=== PATIENT | female | born 1950 | race Caucasian/White ===

== ENCOUNTER → 2020-10-03 09:19 | Outpatient (CLI) | payer OTHER, SELFPAY ==
--- NOTE | ~2020-10-03 | CT_ITS ---
EXAMINATION: CT lung screening EXAM DATE: 10/03/2020 09:53 INDICATION: Z87.891 - Personal history of nicotine dependence TECHNIQUE: Spiral low dose CT of the chest without contrast. Axial, coronal and sagittal images were reviewed. The dose-length product (DLP) for this examination was 93.94 mGy-cm. The exposure was ta ilored according to patient size (auto mA exposure control), and iterative reconstruction (ASIR) was used as additional dose reduction technique. Comparison is made to prior examination from 10/01/2018. FINDINGS: Interval development of a lobular right upper lobe nodule anteriorly measuring 1.3 cm aver age dimension. There is mild emphysema. Tracheobronchial tree is patent. There is no mediastinal, h ilar or axillary lymphadenopathy. There are no pleural or pericardial effusions. There is no pneu mothorax. Heart normal in size. There is moderate coronary arterial calcification, arterial scler osis. Upper abdomen is unremarkable. There is thoracic spondylosis without osteoblastic or osteolyt ic lesions identified. IMPRESSION: Lung-RADS category 4B. Consider PET/CT or CT-guided percutaneous lung biopsy. I left a message for Dr. Aline Villanueva MD on 10/03/2020 10:47 RCIS. I provided my direct number, p rovided call back number to discuss findings in this case. Reviewed, dictated and finalized at location B. IMPRESSION: Lung-RADS category 4B. Consider PET/CT or CT-guided percutaneous aviva ng biopsy. I left a message for Dr. Aline Villanueva MD on 10/03/2020 10:47 RCIS. I provid ed my direct number, provided call back number to discuss findings in this case .
== END ==
PROVIDERS: Visit Provider Internal Medicine Critical Care Medicine
DX: Z12.2 Encounter for screening for malignant neoplasm of respiratory organs (principal); Z87.891 Personal history of nicotine dependence
CPT/HCPCS: G0297

== ENCOUNTER → 2020-10-12 12:30 | Outpatient (CLI) | payer OTHER, SELFPAY ==
--- NOTE | ~2020-10-12 | DEXA_ITS ---
Bone Density Report Name: Safia Hamm Age: 70 Sex: Female Ethnicity: White Date of : 1950 Indication: postmenopausal; screening for osteoporosis; height loss; history of glucocorticoids; asthma or emphysema; hysterectomy; Referring Provider: Abril Llanos Study: Bone densitometry was performed. Exam Date: October 12, 2020 Accession number: [id number] Bone Density: Region BMD T-score Z-score Classification AP Spine (L1-L4) 0.963 -0.8 1.3 Normal Femoral Neck (Left) 0.720 -1.2 0.6 Osteopenia Total Hip (Left) 0.807 -1.1 0.4 Osteopenia Femoral Neck (Right) 0.704 -1.3 0.4 Osteopenia Total Hip (Right) 0.831 -0.9 0.6 Normal Total Hip Mean 0.819 -1.0 0.5 Normal World Health Organization criteria for BMD impression classify patients as: Normal (T-score at or above -1.0), Osteopenia (T-score between -1.0 and -2.5), or Osteoporosis (T-score at or below -2.5). 10-year Fracture Risk(1): Major Osteoporotic Fracture 15% Hip Fracture 2.1% Reported Risk Factors: [place] (), Neck BMD=0.704, BMI=25.9, glucocorticoids (1) FRAX(R) Version 3.08. Fracture probability calculated for an untreated patient. Fracture probability may be lower if the patient has received treatment. Clinical Information Provided by Patient: Has taken Glucocorticoids Has used the following medications: Vitamin D, Calcium, MTV Has the following medical conditions: Asthma or Emphysema, Hysterectomy, lung cancer 5 yrs ago Patient maximum height was 71.75 Menopause Age: 41 Drinks caffeinated beverages Onset of menses at age 16 Number of children 2 Impression: The patient has low bone mass, based on the Right Femoral Neck T-score. The patient has an estimated ten-year risk of hip fracture of 2.1% and an estimated ten-year risk of major fracture of 15%, based on the WHO FRAX algorithm. The patient has risk factors, including: history of glucocorticoid therapy. Discussion: BONE DENSITY IS LOW AT ONE OR MORE SKELETAL SITES. This patient's lowest T-score is low at one or more skeletal sites. It meets the World Health Organization's (WHO) criteria for ?low bone mass? (T-score between -1.0 and -2.5). The patient's 10-year risk of fracture as calculated by FRAX is less than the threshold where pharmacological therapy is recommended by the National Osteoporosis Foundation (NOF). However, all treatment decisions require clinical judgment and consideration of individual patient factors, including patient preferences, comorbidities, previous drug use, risk factors not captured in the FRAX model (e.g., frailty, falls, vitamin D deficiency, increased bone turnover, interval significant decline in bone density) and possible under or overestimation of fracture risk by FRAX. The patient should follow a healthful lifestyle (good nutri
--- NOTE | ~2020-10-12 | MM_ITS ---
EXAMINATION: MM screening [facility] BI w naya HISTORY: Screening mammogram TECHNIQUE: Craniocaudal and mediolateral oblique 3-D tomosynthesis images were obtained and synthetic 2-D images were generated. CAD analysis was submitted and interpreted. COMPARISON: 11/13/2018, 08/18/2017, 10/30/2013 BREAST PARENCHYMAL COMPOSITION: There are scattered areas of fibroglandular density. FINDINGS: There is no evidence of suspicious mass, calcification, or architectural distortion to sugg est malignancy in either breast. There has been no suspicious interval change. IMPRESSION: 1. No mammographic evidence of malignancy. 2. Recommend routine screening mammography in one year. BI-RADS Category 1: Negative Reviewed, dictated and finalized at location A. OTIC TECHNICIAN
== END ==
PROVIDERS: PCP Family Medicine; Visit Provider Physician Assistant
DX: Z12.31 Encounter for screening mammogram for malignant neoplasm of breast (principal); Z78.0 Asymptomatic menopausal state; M85.852 Other specified disorders of bone density and structure, left thigh; M85.851 Other specified disorders of bone density and structure, right thigh
CPT/HCPCS: 77063; 77067; 77080

== ENCOUNTER 2020-10-19 09:14 | Outpatient (CLI) | payer OTHER, SELFPAY ==
--- NOTE | ~2020-10-19 | PE_ITS ---
EXAMINATION: PET skull to mid thigh DATE: 10/19/2020 11:34 INDICATION: Lung nodule. TECHNIQUE: Blood glucose level was 88 mg/dL. 9.233 mCi of 18-fluorodeoxyglucose (18-FDG) was administ ered i.v. Low dose computed tomography (CT) images were acquired from the base of the brain to the pr oximal thighs for attenuation correction and anatomic localization. Automated exposure control was em ployed. Dose-length product (DLP) was 506 mGy-cm. Positron emission tomography (PET) images were acqu ired in the same distribution. COMPARISON: Chest CT 10/03/2020, 10/01/2018 FINDINGS: Head/neck: There is increased activity in the oropharynx and major salivary glands and glottis withou t CT correlate, likely physiologic. There are no pathologically enlarged lymph nodes. Chest: There is mild emphysema. There is a 5 mm nodule in left lower lobe without increased activity, worsened from 10/01/18, probably benign. There is a 1.4 cm nodule in right lung upper lobe with maxim um SUV of 7.6. There is a 1.4 cm part-solid nodule with 4 mm solid component in right upper lobe with maximum SUV of 4.0, worsened from 10/01/18. There is a 1.3 cm part-solid nodule with 4 mm solid compo nent without increased activity in left upper lobe, worsened from 10/01/18. There is a chronic 4 mm no dule in right lower lobe without increased activity. There are changes of partial resection of right upper lobe. No pleural effusion. The heart size is normal. There are coronary artery calcifications. No pericardial effusion. There are calcifications of aortic valve. Abdomen/pelvis/proximal thighs: The liver, gallbladder, spleen, pancreas, adrenal glands, and kidneys are normal. There are no dilated loops of bowel. There are no pathologically enlarged lymph nodes. T here is no free intraperitoneal fluid. There is no osseous metastatic disease. IMPRESSION: 1. 1.4 cm nodule in right lung upper lobe with increased activity with worsening from 10/01/2018, very suspicious for primary malignancy. CT-guided biopsy is recommended. 2. 1.4 cm part-solid nodule with increased activity in right upper lobe, worsened from 10/01/18, very suspicious for primary malignancy. 3. 1.3 cm part-solid nodule without increased activity in left upper lobe, worsened from 10/01/18, carter y suspicious for primary malignancy. Reviewed, dictated and finalized at location A. S OPERATOR MEAT IMPRESSION: 1. 1.4 cm nodule in right lung upper lobe with increased activity with worsenin g from 10/01/2018, very suspicious for primary malignancy. CT-guided biopsy is r ecommended. 2. 1.4 cm part-solid nodule with increased activity in right upper lobe, worsen ed from 10/01/18, very suspicious for primary malignancy. 3. 1.3 cm part-solid nodule without increased activity in left upper lobe, wors ened from 10/01/18, very suspicious for primary malignancy.
[2020-10-19 09:42] LABS: Glucose Point of Care 88 (65-105)
== END 2020-10-19 09:15 | disposition home or self-care (01) ==
PROVIDERS: PCP Family Medicine; Visit Provider Internal Medicine Critical Care Medicine
DX: R91.1 Solitary pulmonary nodule (principal); R91.8 Other nonspecific abnormal finding of lung field
CPT/HCPCS: 78815; A9552

== ENCOUNTER 2020-10-30 08:07 | Outpatient (CLI) | payer OTHER, SELFPAY ==
--- NOTE | 2020-11-09 13:48 | WPDPFTINT ---
PFT Interpretation PFT Interpretation: This PFT met all criteria for ATS standards and reproducibility FEV/FVC post bronchodilator 54% FEV1 68% or 1.80 liters FVC 91% or 3.33 liters TLC 108% RV 133% RV/TLC 49% DLCO 73% when adjusted for alveolar volume but not adjusted for hemoglobin Flow volume loops showed significant expiratory coving. Impression: Moderate airflow obstruction with air trapping and mildly reduced diffusion. This pattern is suggestive of COPD. Clinical correlation is advised.
--- NOTE | 2020-11-09 14:05 | WPDSIXMINUTE ---
Six Minute Walk Six Minute Walk: The patients O2 sats started at 96% and dropped as low as 96% Total walk distance 381 meters conclusion: This patient does qualify for home oxygen therapy
== END 2020-10-30 08:08 | disposition home or self-care (01) ==
PROVIDERS: PCP Family Medicine; Visit Provider Internal Medicine Critical Care Medicine
DX: J44.9 Chronic obstructive pulmonary disease, unspecified (principal)
CPT/HCPCS: 94060; 94618; 94726; 94729

== ENCOUNTER 2021-10-22 14:01 | Emergency (ER) | payer OTHER, SELFPAY ==
--- NOTE | ~2021-10-22 | XR_ITS ---
EXAMINATION: XR hip LT min 2V DATE: 10/22/2021 15:12 INDICATION: Left hip pain post fall TECHNIQUE: Anteroposterior and frog-leg lateral views of the left hip were obtained. COMPARISON: None. FINDINGS: Alignment is normal. No fracture. Mild left hip and bilateral sacroiliac osteoarthritis. Moderate low er lumbar facet osteoarthritis. Multiple small phleboliths in the pelvis. Soft tissues are unremarkab le. IMPRESSION: 1. Mild left hip osteoarthritis. No acute osseous abnormality. Reviewed, dictated and finalized at location A. T DESK TEAM MEMBER
[2021-10-22 14:05] VITALS: BP 133/80; PULSE 100; RESP 16; TEMP 36.4; O2SAT 97
[2021-10-22 15:45] VITALS: BP 130/68; PULSE 99; RESP 18; O2SAT 100
--- NOTE | 2021-10-22 15:53 | ED.LOWEXIN ---
HPI - Extremity Injury (Lower) General Chief Complaint: Fall Stated Complaint: Fall, hip pain. Time Seen by Provider: 10/22/21 15:29 Source: patient Mode of arrival: ambulatory Limitations: no limitations History of Present Illness HPI Narrative: Patient is a 71-year-old female complaining of left hip pain, 8 out of 10, dull, aching, worse with palpation, ambulation movement after she tripped while carrying chairs and landed on her left lower extremity. Patient denies any head, neck, chest, back or any other extremity pain/injury. Patient denies any loss of consciousness. Denies any symptoms prior to the fall. Related Data Home Medications Medication Instructions Recorded Confirmed carvedilol 12.5 mg tablet 12.5 mg PO Q12H 01/10/20 10/22/21 cetirizine 10 mg tablet 10 mg PO .qhs tablet 01/10/21 10/22/21 warfarin 5 mg tablet 5 mg PO QMWF 09/13/21 10/22/21 simvastatin 20 mg tablet 20 mg PO DAILY tablet 10/22/21 10/22/21 Allergies Allergy/AdvReac Type Severity Reaction Status Date / Time levofloxacin Allergy Mild hives Verified 10/22/21 09:46 Review of Systems Review of Systems: All systems reviewed & are unremarkable except as noted in HPI and below Constitutional: Constitutional: Denies body ache(s), Denies chills, Denies excessive sweating, Denies fatigue, Denies fever(s), Denies headache(s), Denies lethargy, Denies malaise, Denies weakness and Denies weight loss Eyes: Eyes: Denies blurry vision, Denies change in vision and Denies loss of vision ENT: Denies dizziness, Denies ear discharge, Denies headache(s), Denies lip swelling, Denies epistaxis, Denies nasal congestion, Denies neck pain, Denies throat swelling and Denies tongue swelling Cardiovascular: Cardiovascular: Denies chest pain, Denies chest pain at rest, Denies chest pain with activity, Denies diaphoresis, Denies rapid heart rate, Denies edema, Denies irregular heart rhythm, Denies lightheadedness, Denies palpitations, Denies dyspnea and Denies dyspnea on exertion Respiratory: Respiratory: Denies chest congestion, Denies cough, Denies hemoptysis, Denies dyspnea and Denies dyspnea on exertion Gastrointestinal: Gastrointestinal: Denies abdominal pain, Denies melena, Denies hematochezia, Denies diarrhea, Denies nausea, Denies vomiting and Denies hematemesis Musculoskeletal: Musculoskeletal: Denies deformity, Denies joint swelling, Denies neck pain and Denies numbness Neurologic: Denies Abnormal speech present, Denies abnormal gait, Denies confusion, Denies dizziness, Denies headache(s), Denies focal weakness, Denies loss of vision, Denies numbness, Denies Other visual disturbances, Denies Sensory deficit (Neuro) and Denies weakness Psychiatric: Psychiatric: Denies confusion, Denies depression, Denies auditory hallucinations, Denies homicidal ideation and Denies suicidal ideation Endocrine: Endocrine: Denies cold intolerance, Denies excessive sweating, Denies fatigue, Denies heat intolerance and Denies palpitations Hematologic/Lymphatic: Hematologic/Lymphatic: Denies easy bleeding and Denies easy bruising Allergic/Immunologic: Allergic/Immunologic: Denies lip swelling, Denies throat swelling and Denies tongue swelling PMFSH Past Medical History Medical History Anticoagulation adequate Benign essential HTN Carotid arterial disease COPD (chronic obstructive pulmonary disease) History of lung cancer History of tobacco abuse Hyperlipidemia Lung cancer Nonrheumatic aortic (valve) stenosis PAD (peripheral artery disease) PAF (paroxysmal atrial fibrillation) Tobacco abuse, in remission Surgical History Surgical History Status post lung surgery 2015 lung cancer RUL, M [facility]'s Family History Family History Grandparent Hypertension Family history of elevated blood lipids Cerebrova
[2021-10-22] MEDS: diazePAM (*CRX) 5 MG TABLET 2.5 MG PO (16:33)
[2021-10-22] MEDS: HYDROcodone/acetaminophen (*CRX) 5-325 MG TABLET 1 TAB PO (16:33)
== END 2021-10-22 17:26 | disposition home or self-care (01) ==
LOC: ANHED 15:59
PROVIDERS: Emergency Provider Emergency Medicine; PCP Internal Medicine
DX: S70.02XA Contusion of left hip, initial encounter (principal); I10 Essential (primary) hypertension; I25.10 Atherosclerotic heart disease of native coronary artery without angina pectoris; J44.9 Chronic obstructive pulmonary disease, unspecified; E78.5 Hyperlipidemia, unspecified; I73.9 Peripheral vascular disease, unspecified; I48.0 Paroxysmal atrial fibrillation; I35.0 Nonrheumatic aortic (valve) stenosis; Z85.118 Personal history of other malignant neoplasm of bronchus and lung; Z87.891 Personal history of nicotine dependence
CPT/HCPCS: 73502; 99283; A9270

== ENCOUNTER → 2021-12-18 14:05 | Outpatient (CLI) | payer OTHER, SELFPAY ==
--- NOTE | ~2021-12-18 | MM_ITS ---
EXAMINATION: MM screening [facility] [place] BI w naya HISTORY: Screening TECHNIQUE: Craniocaudal and mediolateral oblique 3-D tomosynthesis images were obtained and synthetic 2-D images were generated. CAD analysis was submitted and interpreted. COMPARISON: Comparison to multiple prior studies sequentially, with oldest reviewed study dated 09/01. BREAST PARENCHYMAL COMPOSITION: Breast composed of scattered areas of fibroglandular density. FINDINGS: There is no evidence of suspicious mass, calcification, or architectural distortion to sugg est malignancy in either breast. There has been no suspicious interval change. IMPRESSION: 1. No mammographic evidence of malignancy. 2. Recommend routine screening mammography in one year. BI-RADS Category 1: Negative Reviewed, dictated and finalized at location A. ATHERAPIST
== END ==
PROVIDERS: PCP Internal Medicine; Visit Provider Internal Medicine
DX: Z12.31 Encounter for screening mammogram for malignant neoplasm of breast (principal)
CPT/HCPCS: 77063; 77067

== ENCOUNTER → 2022-01-23 08:14 | Outpatient (CLI) | payer OTHER, SELFPAY ==
[2022-01-23 11:49] LABS: Influenza A QL RT-PCR Negative (Negative); Influenza B QL RT-PCR Negative (Negative); SARS-CoV-2 RNA PCR Negative
== END ==
PROVIDERS: PCP Internal Medicine; Visit Provider Internal Medicine
DX: Z20.822 Contact with and (suspected) exposure to COVID-19 (principal)
CPT/HCPCS: 87502; C9803; U0003; U0005

== ENCOUNTER → 2022-12-18 09:59 | Outpatient (CLI) | payer OTHER, SELFPAY ==
--- NOTE | ~2022-12-18 | XR_ITS ---
Clinical Indication: Pleurodynia PA and lateral views of the chest: Comparison: 12/08/2015 Findings: Biopsy clips or fiducial markers are noted in the bilateral upper lobes. Questionable vague , very subtle densities about the clips. No other pulmonary abnormality seen.. Cardiomediastinal ivette houette is within normal limits. Bones and soft tissues are unremarkable. Impression: Probable biopsy clips or fiducial markers in the bilateral upper lobes. Correlate with prior surgical /clinical history. No other significant findings. Reviewed, dictated and finalized at location . CTOR OF EVENT SALES Impression: Probable biopsy clips or fiducial markers in the bilateral upper lobes. Correla te with prior surgical/clinical history. No other significant findings.
== END ==
PROVIDERS: PCP Physician Assistant; Visit Provider Physician Assistant
DX: R07.81 Pleurodynia (principal)
CPT/HCPCS: 71046

== ENCOUNTER → 2023-01-16 11:37 | Outpatient (CLI) | payer OTHER, SELFPAY ==
--- NOTE | ~2023-01-16 | MM_ITS ---
EXAMINATION: MM screening [facility] BI w naya HISTORY: Screening mammogram TECHNIQUE: Craniocaudal and mediolateral oblique 3-D tomosynthesis images were obtained and synthetic 2-D images were generated. CAD analysis was submitted and interpreted. COMPARISON: 12/18/2021, 10/12/2020, 11/13/2018 bilateral screening mammogram examinations BREAST PARENCHYMAL COMPOSITION: FINDINGS: There is no evidence of suspicious mass, calcification, or architectural distortion to sugg est malignancy in either breast. There has been no suspicious interval change. IMPRESSION: 1. No mammographic evidence of malignancy. 2. Recommend routine screening mammography in one year. BI-RADS Category 1: Negative Reviewed, dictated and finalized at location A. NICAL SUPPORT DIRECTOR
== END ==
PROVIDERS: PCP Physician Assistant; Visit Provider Physician Assistant
DX: Z12.31 Encounter for screening mammogram for malignant neoplasm of breast (principal)
CPT/HCPCS: 77063; 77067

== ENCOUNTER 2024-05-21 08:21 | Outpatient (CLI) | payer OTHER, SELFPAY ==
--- NOTE | ~2024-05-21 | US_ITS ---
EXAMINATION: US carotid duplex BI DATE: 05/21/2024 09:25 INDICATION: Carotid bruit. Dizziness. TECHNIQUE: Grayscale, color Doppler, and pulsed Doppler images of the cervical carotid arteries were obtained. The degree of vessel stenosis is placed in one of the following categories: normal, <50%, 5 0-69%, >=70% but less than near-occlusion, near-occlusion, or total occlusion. Note that percent sten osis relative to normal distal artery lumen diameter is indirectly measured from velocity measurement s as described by Unruly, et al. Radiology 2003; 229:340-346. COMPARISON: None. FINDINGS: RIGHT: The right common carotid artery (CCA) peak systolic velocity (PSV) is 61 cm/s. The right internal car otid artery (ICA) PSV is 169 cm/s. The right ICA end-diastolic velocity (EDV) is 49 cm/s. The right I CA/CCA PSV ratio is 2.8. Grayscale and color Doppler images yield an estimate of 50-69% diameter redu ction from plaque in the ICA. The external carotid artery (ECA) PSV is 112 cm/s. There is antegrade f low in the right vertebral artery. LEFT: The left CCA PSV is 38 cm/s. The left ICA PSV is 237 cm/s. The left ICA EDV is 64 cm/s. The left ICA/ CCA PSV ratio is 6.2. Grayscale and color Doppler images yield an estimate of >=70% (but less than ne ar occlusion) diameter reduction from plaque in the ICA. The ECA PSV is 115 cm/s. There is antegrade flow in the left vertebral artery. IMPRESSION: 1. 50-69% stenosis in the right internal carotid artery. 2. >=70% (but less than near occlusion) stenosis in the left internal carotid artery. Reviewed, dictated and finalized at location A. IMPRESSION: 1. 50-69% stenosis in the right internal carotid artery. 2. >=70% (but less than near occlusion) stenosis in the left internal carotid a rtery.
== END 2024-05-21 08:22 | disposition home or self-care (01) ==
PROVIDERS: PCP Physician Assistant; Visit Provider Internal Medicine Cardiovascular Disease
DX: R09.89 Other specified symptoms and signs involving the circulatory and respiratory systems (principal); I65.23 Occlusion and stenosis of bilateral carotid arteries
CPT/HCPCS: 93880

== ENCOUNTER 2024-05-21 08:22 | Outpatient (CLI) | payer OTHER, SELFPAY ==
--- NOTE | 2024-05-21 08:48 | ECHO_ITS ---
Patient Info Name: Safia Hamm Age: 73 years : 1950 Gender: Female Ht: 71 in Wt: 176 lbs BSA: 2.01 m2 HR: 71 bpm BP: 165 / 87 mmHg Technical Quality: Good Exam Date: 05/21/2024 10:31 AM Exam Location: Echo Lab Patient Status: Outpatient Admit Date: 05/21/2024 Staff Ordering Physician: Baljinder Mccord DO Carton Stamper: Freddy Lucio RDCS Attending Provider: Baljinder Mccord DO Referring Physician: Flex MOORE; Exam Type: CA echo doppler color flow Study Info Indications I35.0 - Nonrheumatic aortic (valve) stenosis Complete two-dimensional, color flow and Doppler transthoracic echocardiogram is performed. Summary 1. Complete two-dimensional, color flow and Doppler transthoracic echocardiogram is performed. 2. Left ventricular chamber dimension is normal. 3. Left ventricular systolic function is normal, estimated at 55-60%. 4. The left ventricular diastolic function is grade I diastolic dysfunction. 5. E/e' 14 is mildly elevated. 6. The aortic valve is not well visualized. 7. There is moderate aortic valve sclerosis. 8. There is mild aortic valve regurgitation. 9. There is moderate to severe aortic valve stenosis based on a peak velocity of 262 cm/s, mean gradient of 14 mmHg, and aortic valve area of 0.9 cm2. 10. The mitral valve has mildly calcified annulus. 11. There is mild to moderate mitral valve regurgitation. 12. There is mild to moderate tricuspid valve regurgitation. 13. No pulmonary hypertension, estimated pulmonary arterial systolic pressure is 31 mmHg. Left Ventricle E/e' 14 is mildly elevated. Left ventricular chamber dimension is normal. Left ventricular systolic function is normal, estimated at 55-60%. The left ventricular diastolic function is grade I diastolic dysfunction. Right Ventricle Right ventricular systolic function is normal and with normal TAPSE 1.9 cm. Right ventricular chamber dimension is normal. Left Atria Left atrial chamber dimension is normal. Right Atria Right atrial chamber dimension is normal. Aortic Valve There is moderate to severe aortic valve stenosis based on a peak velocity of 262 cm/s, mean gradient of 14 mmHg, and aortic valve area of 0.9 cm2. The aortic valve is not well visualized. There is moderate aortic valve sclerosis. There is mild aortic valve regurgitation. Pulmonic Valve There is no pulmonic regurgitation. Mitral Valve The mitral valve has mildly calcified annulus. There is no mitral valve stenosis. There is mild to moderate mitral valve regurgitation. Tricuspid Valve There is mild to moderate tricuspid valve regurgitation. No pulmonary hypertension, estimated pulmonary arterial systolic pressure is 31 mmHg. Pericardium/Pleural There is no pericardial effusion. Inferior Vena Cava Normal inferior vena cava with >50% collapse upon inspiration consistent with normal right atrial pressure, 5 mmHg. Aorta The aortic root size at the sinus of Valsalva is normal. Left Ventricular Outflow Tract Name Value Normal LVOT 2D LVOT Diameter 2.0 cm LVOT Doppler LVOT Peak Gradient 2 mmHg LVOT Mean Gradient 1 mmHg LVOT VTI 17 cm LVOT VTI/AV VTI
== END 2024-05-21 08:23 | disposition home or self-care (01) ==
PROVIDERS: PCP Physician Assistant; Visit Provider Internal Medicine Cardiovascular Disease
DX: I35.0 Nonrheumatic aortic (valve) stenosis (principal)
CPT/HCPCS: 93306; 93880

== ENCOUNTER 2025-04-06 11:28 | Outpatient (RCR) | payer OTHER, SELFPAY ==
[2025-01-14 16:32] LABS: Prothrombin Time 23.2 Seconds (11.1-14.7)
[2025-03-14 14:19] LABS: INR 1.7
[2025-04-06 12:17] LABS: INR 2.3; Prothrombin Time 25.6 Seconds (11.1-14.7)
== END 2025-04-14 23:59 | disposition home or self-care (01) ==
LOC: ANHLAB 11:28
PROVIDERS: PCP Physician Assistant; Visit Provider Internal Medicine Cardiovascular Disease
DX: I48.0 Paroxysmal atrial fibrillation (principal)
CPT/HCPCS: 36415; 85610

== ENCOUNTER 2025-05-03 14:48 | Outpatient (CLI) | payer OTHER, SELFPAY ==
--- OUTSIDE RECORDS SUMMARY | 2025-05-03 14:52 | XMS_ITS | Clinical Summary ---
Author Organization [facility] [address] Address [address] [place] [address] Care Team Providers Care Human Resources Clerk Name Role Phone Herve Ramirez MD Unavailable [phone] Honorio Oro MD Unavailable Arden Mariscal MD Primary Care Provider [phone] Allergies Active Allergy Reactions Criticality Noted Date Comments Levofloxacin Anaphylaxis High 08/17/2014 Rosuvastatin Muscle pain Medium 07/06/2018 Medications cetirizine (ZyrTEC) 10 mg tablet take 1 tablet by oral route every day 0 0 7 Active fluticasone propion-salmete roL (ADVAIR DISKUS) 250-50 mcg/dose diskus inhaler 1 Active flecainide (TAMBOCOR) 100 mg tablet Take 1 tablet (100 mg total) by mouth 2 (two) times a day 180 tablet 2 3 Active aspirin (Adult Low Dose Aspirin) 81 mg enteric coated tablet Take 1 tablet (81 mg total) by mouth daily 4 Active simvastatin (ZOCOR) 40 mg tablet Take 1 tablet (40 mg total) by mouth daily 90 tablet 3 4 Active carvediloL (COREG) 12.5 mg tablet Take 1 tablet (12.5 mg total) by mouth 2 (two) times a day with meals 180 tablet 1 4 Active warfarin (COUMADIN) 5 mg tablet TAKE 1 & 1/2 TABLETS BY MOUTH ONCE DAILY ON FRIDAY, FRIDAY AND FRIDAY AND 1 TABLET ALL OTHER DAYS 112 tablet 4 Active Active Problems Problem Noted Date Diagnosed Date Coronary artery calcification seen on CT scan Mixed hyperlipidemia 04/25/2022 Medication side effects 08/15/2021 Palpitations 07/31/2020 Statin myopathy 01/24/2020 Stenosis of left carotid artery 07/19/2019 Statin intolerance 07/06/2018 Myalgia 01/19/2018 PAD (peripheral artery disease) ([facility]/HCC) 2016 Chronic anticoagulation 08/12/2017 Paroxysmal atrial flutter 12/19/2016 Overview (03/06/2017): Paroxysmal atrial flutter Chronic obstructive pulmonary disease 12/19/2016 Overview (03/06/2017): Chronic obstructive pulmonary disease, unspecified COPD type Aortic valve stenosis 12/19/2016 Overview (03/07/2017): Aortic stenosis, mild Cancer of lung 12/19/2016 Overview (03/07/2017): Malignant neoplasm of lung, unspecified laterality, unspecified part of lung Benign hypertension 12/19/2016 Overview (03/07/2017): HTN (hypertension), benign Resolved Problems Problem Noted Date Diagnosed Date Resolved Date Dyslipidemia 12/19/2016 10/28/2022 Overview (03/07/2017): Dyslipidemia Surgical History Surgery Date Site/Laterality Comments OTHER SURGICAL HISTORY Paroxysmal Atrial FLutter: Medical History Medical History Date Comments Hx Other Medical Paroxysmal Atri al FLutter Chronic obstructive pulmonary disease (HCC) COPD Hypertension Hypertension Hx Other Medical hx of tobacco u se Family History Medical History Relation Name Comments Other Brother 2 Alive and well; Lung cancer Father Cancer, lung; C ause of : Cancer, lung Heart attack Maternal Grandfather Myocard ial Infarction; Cause of : Myocardial Infarction Colon cancer Mother Cancer, colon; Cause of : Cancer, colon Other Other 1 Family history of family hx stroke; Other Other 2 Family history of family hx cancer; Other Other 3 Family history of family hx heart disease; Other Other 4 Family history of family hx hyperlipidema; Other Other 5 Family history of family hx hypertension; Relation Name Status Comments Brother 1 Alive Brother 2 Father (Age 68) Maternal Grandfather Mother (Age 72) Other 1 Other 2 Other 3 Other 4 Other 5 Social History Tobacco Use Types Packs/Day Years Used Date Smoking Tobacco: Former Cigarettes Q uit: 08/12/2009 Smokeless Tobacco: Never Tobacco Cessation:Counseling Given: Not Answered Alcohol Use Standard Drinks/Week Comments Yes 3 (1 standard drink = 0.6 oz pur e alcohol) Comments Unknown Sex and Gender Information Value Date Recorded Sex Assigned at Not on file Legal Sex Female 6:04 AM OVER SHORT AND DAMAGE CLERK Gender Identity Not on file Sexual Orientation Not on file Obstetrics History Last Filed Vital Signs Vital Sign Reading Time Taken Comments Blood Pressure 116/72 12/05/2023 10:45 AM OVER SHORT AND DAMAGE CLERK Pulse 75 12/05/2023 10:45 AM OVER SHORT AND DAMAGE CLERK Temperature - - Respiratory Rate - - Oxygen Saturation 96% 12/05/2023 10:45 AM OVER SHORT AND DAMAGE CLERK Inhaled Oxygen Concentration - - Weight 82.1 kg (181 lb 1.6 oz) 12/05/2023 10:45 AM OVER SHORT AND DAMAGE CLERK Height 180.3 cm (5' 11) 12/05/2023 10:45 AM OVER SHORT AND DAMAGE CLERK Body Mass Index 25.26 12/05/2023 10:45 AM OVER SHORT AND DAMAGE CLERK Plan of Treatment Health Maintenance Due Date Last Done Comments Breast Cancer Screening-Mammogram 1950 Colon Cancer Screening-Colonoscopy 1950 Depression Screening 1950 Fall Risk Assessment 1950 Hepatitis C Screening 1950 Osteoporosis Screening-Bone Density Scan 1950 DTaP/Tdap/Td Vaccine (1 - Tdap) 1962 Hepatitis B Screening 1969 Well Visit 65+ 2016 Covid-19 Vaccine (2023-2 5 season) 2024 09/11/2021, 01/31/2021, 01/12/2021 Influenza Vaccine (Season Ended) 2025 09/04/2020, 08/21/2019, 08/21/2019, Additional history exists Pneumococcal vaccine 65+ Completed 08/26/2018, 08/03 Zoster Vaccine Completed 06/20/2023, 03/02, 10/22/2015 Insurance [facility] Care Teams Human Resources Clerk Relationship Specialty Start Date End Date Arden Mariscal MD [address] [facility] [address] [facility] [address] [place] [address] PCP - General Internal Medicine 04/25/22 Herve Ramirez MD [address] [facility], [address] [address] Radiation Oncology 08/15/21 Honorio Oro MD [address] [address] Referring Physician Internal Medicine 08/15/21
--- OUTSIDE RECORDS SUMMARY | 2025-05-03 14:52 | XMS_ITS | Encounter Summary ---
Author Organization [facility] Address [address] [place] [address] Care Team Providers Care Loop Cutter Name Role Phone June Khan RN Unavailable [phone] Milad Pena MD Unavailable [phone] Eric Good DIRECTOR OF RESTAURANTS-TOLL LINE MECHANIC Primary Care Provider Encounter Details Date Type Department Care Team (Late st Contact Info) Description 03/29/2025 Results Follow-Up [facility] Cancer Care [address] [facility] [address] [place] [phone] Floridalma Murillo APRN-TOLL LINE MECHANIC [address] [place] [address] Social History Tobacco Use Types Packs/Day Years Used Date Smoking Tobacco: Former Cigarettes 1 30 0 12/01/1977 - 12/01/2007 Smokeless Tobacco: Never Alcohol Use Standard Drinks/Week Comments Yes 3 (1 standard drink = 0.6 oz pur e alcohol) occassional AUDIT-C Answer Date Recorded Q1: How often do you have a drink containing alc ohol? 2-4 times a month 09/13/2024 Q2: How many drinks containi ng alcohol do you have on a typical day when you are drinking? 1 or 2 09/13/2024 Q3: How often do you have si x or more drinks on one occasion? Never 09/13/2024 Overall Financial Resource Strain (CARDIA) Answe r Date Recorded How hard is it for you to pa y for the very basics like food, housing, medical care, and heating? Not hard at all 09/13/2024 PHQ-2 Answer Date Recorded Patient Health Questionnaire-2 Score 0 03/29/2025 [facility] - Occupational Stress Questionnaire Answer Date Recorded Do you feel stress - tense, restless, nervous, or anxious, or unable to sleep at night because your mind is troubled all the time - these days? Not at all 09/13/2024 Hunger Vital Sign Answer Date Recorded Within the past 12 months, y ou worried that your food would run out before you got the money to buy more. Never true 09/13/20 24 Within the past 12 months, t he food you bought just didn't last and you didn't have money to get more. Never true 09/13/2024 PRAPARE - Transportation Answer Date Re corded In the past 12 months, has l ack of transportation kept you from medical appointments or from getting medications? No 08/31 In the past 12 months, has l ack of transportation kept you from meetings, work, or from getting things needed for daily living? No 09/13/2024 Housing Stability Vital Sign Answer Greg e Recorded In the last 12 months, was t here a time when you were not able to pay the mortgage or rent on time? No 09/13/2024 In the past 12 months, how m any times have you moved where you were living? 1 09/13/2024 At any time in the past 12 m [facility], were you homeless or living in a long term (including now)? No 09/13/2024 Comments No Sex and Gender Information Value Date Recorded Sex Assigned at Not on file Legal Sex Female 4:13 PM CDT Gender Identity Female 11/26/2024 8:17 AM TRANSPORTATION MECHANIC Sexual Orientation Not on file documented as of this encounter Functional Status * Is person deaf or have serious hearing difficulty? Answer Date of Assessment Author No 09/13/2024 8:01 PM CDT Lupe Koch, Graduate Nurse * Is person blind or have serious difficulty seeing? Answer Date of Assessment Author No 09/13/2024 8:01 PM CDT Lupe Koch, Graduate Nurse * Does person have serious difficulty walking/climbing stairs? Answer Date of Assessment Author No 09/13/2024 8:01 PM CDT Lupe Koch Graduate Nurse * Does person have difficulty dressing/bathing? Answer Date of Assessment Author No 09/13/2024 8:01 PM CDT Lupe Koch Graduate Nurse * Does person have difficulty doing errands alone? Answer Date of Assessment Author No 09/13/2024 8:01 PM CDT Lupe Koch Graduate Nurse * Over the past 2 weeks, how often have you been bothered by any of the following problems? Question Answer Date of Assessment Author Little interest or pleasure in doing things Not at all 03/29/2025 1:15 PM CDT Ginette Zapata RN Feeling down, depressed, or hopeless Not at all 03/29/2025 1:15 PM CDT Ginette Zapata RN Patient Health Questionnaire -2 Score 0 03/29/2025 1:15 PM CDT Ginette Zapata RN documented as of this encounter Mental Status * Does person have difficulty concentrating/remembering/making decisions? Answer Entry Date Author No 09/13/2024 8:01 PM CDT Lupe Koch Graduate Nurse documented in this encounter Progress Notes * Floridalma Murillo APRN-CNP - 03/29/2025 8:28 PM CDT FYI: Copy of my note I sent to patient via [employer] message: Safia Blackwood, Lab results from recent office visit: Comprehensive Metabolic Panel is clinically stable. LDH level is within normal limits. If you have any questions or concerns please do not hesitate to call the office at [phone]. Have a Great Evening! Thank you, Diana documented in this encounter Plan of Treatment Upcoming Encounters Date Type Department Care Team (Late st Contact Info) Description 06/28/2025 12:40 PM CDT Documentation [address] [address] 06/28/2025 1:00 PM CDT Office Visit [address] [address] Honorio Oro MD [address] [facility] [address] [place] [address] 07/27/2025 11:00 AM CDT Appointment [facility] Imaging Services - CT Scan [address] [facility], [address] [place] [address] 07/28/2025 11:00 AM CDT Office Visit [facility] Health Cancer Care - Radiation Oncology [address] [facility], [address] [place] [address] Rnoald Cruz MD [address] [facility] [address] [place] [address] documented as of this encounter Visit Diagnoses Not on filedocumented in this encounter Care Teams Loop Cutter Relationship Specialty Start Date End Date Eric Good, NADEGE-TOLL LINE MECHANIC [address] [place] [address] PCP - General Nurse Practitioner 06/16/24 June Khan, RN Test Hole Driller 09/28/14 Milad Pena MD [address] [facility] [address] [place] [address] Client Solutions Director Cardiovascular Disease 12/25/22 documented as of this encounter
--- OUTSIDE RECORDS SUMMARY | 2025-05-03 14:52 | XMS_ITS | Encounter Summary ---
Author Organization [facility] Health Address [address] [place] [address] Care Team Providers Care Physical Education Professor Name Role Phone June Khan RN Unavailable [phone] Bentley VillarrealC Primary Care Provide r Milad Pena MD Unavailable [phone] Eric Good APRN-CAR REPOSSESSOR Primary Care Provider Encounter Details Date Type Department Care Team (Late st Contact Info) Description 05/21/2024 [facility] Outpatient Visit [facility] Cancer Care [address] [address] Honorio Oro MD [address] [id number] Social History Tobacco Use Types Packs/Day Years Used Date Smoking Tobacco: Former Cigarettes 1 30 0 12/01/1977 - 12/01/2007 Smokeless Tobacco: Never Alcohol Use Standard Drinks/Week Comments Yes 0 (1 standard drink = 0.6 oz pur e alcohol) occassional PHQ-2 Answer Date Recorded Patient Health Questionnaire-2 Score 0 03/03/2024 Comments No Sex and Gender Information Value Date Recorded Sex Assigned at Not on file Legal Sex Female 4:13 PM CDT Gender Identity Female 11/26/2024 8:17 AM WHOLESALE MANAGER Sexual Orientation Not on file documented as of this encounter Functional Status * Is person deaf or have serious hearing difficulty? Answer Date of Assessment Author No 11/03/2014 7:03 AM Jess Buitrago RN * Is person blind or have serious difficulty seeing? Answer Date of Assessment Author No 11/03/2014 7:03 AM Jess Buitrago RN * Does person have serious difficulty walking/climbing stairs? Answer Date of Assessment Author No 11/03/2014 7:03 AM Jess Buitrago RN * Does person have difficulty dressing/bathing? Answer Date of Assessment Author No 11/03/2014 7:03 AM Jess Buitrago RN * Does person have difficulty doing errands alone? Answer Date of Assessment Author No 11/03/2014 7:03 AM Jess Buitrago RN documented as of this encounter Mental Status * Does person have difficulty concentrating/remembering/making decisions? Answer Entry Date Author No 11/03/2014 7:03 AM Jess Buitrago RN documented in this encounter Plan of Treatment Upcoming Encounters Date Type Department Care Team (Late st Contact Info) Description 06/28/2025 12:40 PM CDT Documentation [facility] Cancer [address] [address] 06/28/2025 1:00 PM CDT Office Visit [facility] Cancer [address] [address] Honorio Oro MD [address] [place] [address] 07/27/2025 11:00 AM CDT Appointment [facility] Imaging Services - CT Scan [address] [facility] 150 [place] [address] 07/28/2025 11:00 AM CDT Office Visit [facility] Cancer Care - Radiation Oncology [address] [place] [address] [place] [phone] Ronald Cruz MD [address] [place] [address] documented as of this encounter Visit Diagnoses Not on filedocumented in this encounter Care Teams Physical Education Professor Relationship Specialty Start Date End Date Bentley Villarreal PA-C [address] [facility] [address] [place], [place] [phone] PCP - General Physician Secretary Receptionist 06/19/22 06/15/24 Eric Good APRN-CAR REPOSSESSOR [address] [place], [place] [phone] PCP - General Nurse Practitioner 06/16/24 June Khan, RN Automatic Wheel Line Operator 09/28/14 Milad Pena MD [address] [facility] [address] [place] [address] Birth Certificate Clerk Cardiovascular Disease 12/25/22 documented as of this encounter
--- OUTSIDE RECORDS SUMMARY | 2025-05-03 14:52 | XMS_ITS ---
Author Organization [facility] Address [address] [facility] [place] [address] Care Team Providers Care Director Of Audiology Name Role Phone June Khan RN Unavailable [phone] Milad Pena MD Unavailable [phone] Eric Good WASTE BALER-BROADCASTING EQUIPMENT MECHANIC Primary Care Provider Active Problems Problem Noted Date Diagnosed Date Gastroesophageal reflux disease 03/29/2025 History of radiation therapy 01/26/2025 Overview (01/26/2025): 1. cT1aN0 RUL NSCLC (adenocarcinoma) s/p segmental resection 10/2014 2. Synchronous primary RUL/ANN NSCLC a. cT1aN0 RUL NSCLC (adenocarcinoma) s/p SABR on CyberKnife to 50Gy/5fx completed 01/2021 b. cT1bN0 ANN NSCLC (adenocarcinoma) s/p SABR on CyberKnife to 50Gy/5fx completed 01/2021 3. cT1bN0 LLL NSCLC (adenocarcinoma) s/p SABR on CyberKnife to 45Gy/5fx completed 01/2025 Primary malignant neoplasm of left lower lobe of lung 01/04/2025 Cancer Staging:Clinical stage from 01/04/2025:Stage IA2(cT1b, cN0, cM0) - Signed by Ronald Cruz MD on 01/04/2025 Hospital discharge follow-up 09/23/2024 Bilateral carotid artery stenosis 09/13/2024 Coronary artery calcification seen on CT scan Adenocarcinoma of left upper lobe of lung 2020 Cancer Staging:Clinical stage from 01/09/2021:Stage IA2(cT1b, cN0, cM0) - Signed by Herve Ramirez MD on 01/09/2021 Adenocarcinoma of right upper lobe of lung 12/05 Cancer Staging:Clinical stage from 12/05/2020:Stage IA1(cT1a, cN0, cM0) - Signed by Herve Ramirez MD on 12/05/2020 Stenosis of left carotid artery 07/19/2019 PAD (peripheral artery disease) 10/27/2017 Paroxysmal atrial flutter 12/19/2016 Overview (03/29/2025): Paroxysmal atrial flutter Paroxysmal atrial fibrillation 01/03/2016 PSVT (paroxysmal supraventricular tachycardia) 1 Assessment & Plan (11/05/2014 1:09 AM CORPORATE RISK ANALYST): - Currently NSR - On Coreg COPD (chronic obstructive pulmonary disease) 05/2014 Assessment & Plan (11/05/2014 1:07 AM CORPORATE RISK ANALYST): - On scheduled DuoNebs, O2 by CA Undiagnosed cardiac murmurs 07/31/2014 Mixed hyperlipidemia 07/31/2014 Essential hypertension, benign 07/31/2014 Assessment & Plan (11/05/2014 1:09 AM CORPORATE RISK ANALYST): - BP WNL on Coreg Current Treatment and Therapy Plans No current plan information found. Past Treatment and Therapy Plans No past plan information found. Lifetime Dose Tracking * Chemical Lifetime Dose Automatic Entry Manual Entr y Dose Length Product 8,663.6 mGy-cm 8,663.6 mGy-cm 0 mG y-cm Resolved Problems Problem Noted Date Diagnosed Date Resolved Date Non-small cell carcinoma of lung 09/29/2014 11/06/2014 Assessment & Plan (11/05/2014 1:05 AM CORPORATE RISK ANALYST): - Pt with pulmonary adenocarcinoma R lung s/p VATS with R non-anatomic segmentectomy and thoracic LN dissection - Stable on 2 L NC - Pain control with Dilaudid epidural and ketorolac - Continue pain control - Wean O2 as tolerated Pneumothorax 09/27/2014 03/29/2025 Solitary pulmonary nodule 08/22/2014
--- OUTSIDE RECORDS SUMMARY | 2025-05-03 14:52 | XMS_ITS | Encounter Summary ---
Author Organization [facility] Health Address [address] [place] [address] Care Team Providers Care Risk Management Specialist Name Role Phone June Khan RN Unavailable [phone] Bentley VillarrealC Primary Care Provide r Milad Pena MD Unavailable [phone] Eric Good APRN-SPRAYER INSECTICIDE Primary Care Provider Encounter Details Date Type Department Care Team (Late st Contact Info) Description 05/21/2024 [facility] Outpatient Visit [facility] Cancer Care [address] [address] Honorio Oro MD [address] [id number] Social History Tobacco Use Types Packs/Day Years [...] CDT Gender Identity Female 11/26/2024 8:17 AM INDUCTION FURNACE OPERATOR Sexual Orientation Not on file documented as [...] Info) Description 06/28/2025 12:40 PM CDT Documentation [facility] Cancer [address] [address] 06/28/2025 1:00 PM CDT Office Visit [facility] Cancer [address] [address] Honorio Oro MD [address] [place] [address] 07/27/2025 11:00 AM CDT Appointment [facility] Imaging Services - CT Scan [address] [facility] 150 [place] [address] 07/28/2025 11:00 AM CDT Office Visit [facility] Cancer Care - Radiation Oncology [address] [place] [address] [place] [phone] Ronald Cruz MD [address] [place] [address] documented as of this encounter Visit Diagnoses Not on filedocumented in this encounter Care Teams Risk Management Specialist Relationship Specialty Start Date End Date Bentley Villarreal PA-C [address] [facility] [address] [place], [place] [phone] PCP - General Physician Spray Pilot 06/19/22 06/15/24 Eric Good APRN-SPRAYER INSECTICIDE [address] [place], [place] [phone] PCP - General Nurse Practitioner 06/16/24 June Khan, RN Dental Service Chief 09/28/14 Milad Pena MD [address] [facility] [address] [place] [address] Shanker Out Cardiovascular Disease 12/25/22 documented as of this encounter
--- OUTSIDE RECORDS SUMMARY | 2025-05-03 14:52 | XMS_ITS | Clinical Summary ---
Author Organization [facility] Care Team Providers Care Genetic Counsellor Name Role Phone Unavailable Primary Care Provider Unavailabl e Immunizations Immunization Administration Dates Next Due Covid-19, Mrna, Lnp-s, Pf, 30 Mcg/0.3 Ml Dose (P fizer) 09/11/2021 Social History Tobacco Use Types Packs/Day Years Used Date Smoking Tobacco: Never Assessed Comments Unknown Sex and Gender Information Value Date Recorded Sex Assigned at Not on file Legal Sex Female 9:04 PM CDT Gender Identity Not on file Sexual Orientation Not on file Plan of Treatment Health Maintenance Due Date Last Done Comments Hepatitis C Virus (HCV) Screening 1950 TdaP Immunization 1950 Colonoscopy 1996 Colorectal Cancer Screening 1996 Cologuard 2001 Immunochemical Fecal Occult Blood 2001 Zoster Immunization (2 of 3) 12/17/2015 10/22/2015 SARS-COV-2 Immunization ( season) 2024 09/11/2021, 01/31/2021, 01/12/2021 Influenza Immunization (Season Ended) 2025 09/04/2020, 08/21/2019, 08/26/2018, Additional history exists Respiratory Syncytial Virus (RSV) Immunization (Adult) (1 - 1-dose 75+ series) 2026 Pneumococcal Immunization (50+ years) Completed 08/26/2018, 08/30/2017 Hepatitis B Immunization Aged Out No longer eligible based on patient's age to complete this topic Human Papillomavirus (HPV) Immunization Aged Out No longer eligible based on patient's age to complete this topic Meningococcal Immunization (ACWY) Aged Out No longer eligible based on patient's age to complete this topic Rotavirus Immunization Aged Out No lo nger eligible based on patient's age to complete this topic
--- OUTSIDE RECORDS SUMMARY | 2025-05-03 14:52 | XMS_ITS | Clinical Summary ---
Author Organization [facility] Address [address] [place] [address] Care Team Providers Care Capper Machine Operator Name Role Phone June Khan RN Unavailable [phone] Milad Pena MD Unavailable [phone] Eric Good ELECTROMECHANICAL EQUIPMENT TESTER-ALTERATION HAND Primary Care Provider Source Comments [facility],non-owned Affiliates and Associated Physician Practices is amultiple site organization consisting of ambulatory clinics and hospital sitesin [place], [place], [place] and [place]. This disclosure is being madepursuant to the Care Everywhere program and may not contain all informatio navailable regarding this patient. Last updated 18.[facility] Allergies Active Allergy Reactions Criticality Noted Date Comments Hydromorphone Nausea and/or Vomiting,Headache Low 09/23/2024 Fentanyl Nausea and/or Vomiting,Headache Low 09/23/2024 Levofloxacin Anaphylaxis High 08/17/2014 Penicillins Urticaria High 03/29/2025 Product containing penicillin (product) Rosuvastatin Unknown Medium 07/06/2018 Leg pain Tramadol Nausea and/or Vomiting,Headache Low 09/23/2024 Medications * Be aware that medications may not be up to date on this document. Alwaysverify current medications with the patient. carvedilol (COREG) 12.5 MG tablet Take 1 Tab by mouth 2 times daily with morning and evening meal 180 Tab 4 5 Active cetirizine (ZYRTEC) 10 MG tabletIndicatio ns:vertigo Take 1 (one) tablet by mouth at bedtime Reasons: vertigo Active albuterol HFA (PROVENTIL;VENT TIANNA;PROAIR) 108 (90 Base) MCG/ACT inhaler Inhale 1 (one) puff to 2 (two) puffs by mouth every 4 hours as needed 1 Active WIXELA INHUB 250-50 MCG/DOSE inhaler Inhale 1 (one) puff by mouth 2 times daily 1 Active acetaminophen CR (TYLENOL ARTHRITIS PAIN) 650 MG tabletIndicatio ns:Pain Take 1 (one) tablet by mouth every 8 hours as needed for Pain Pt takes 2 tab as needed prn Reasons: Pain Active Valerian Root 100 MG Take by mouth nightly as needed Active warfarin (COUMADIN) 5 MG tablet Take 1 (one) tablet by mouth once daily Active simvastatin (ZOCOR) 20 MG tablet Take 1 (one) tablet by mouth once daily 2 Active aspirin EC (Ecotrin) 81 MG tablet Take 1 (one) tablet by mouth once daily 4 Active calcium carbonate (Tums) 500 MG chew tablet Take 1 (one) tablet by mouth 2 times daily as needed for Heartburn 4 Active Homeopathic Products (THERAWORX MUSCLE CRAMP ROLL-ON EX) by Apply externally route at bedtime Active senna (Senokot) 8.6 MG tablet Take 1 (one) tablet by mouth once daily Active Active Problems Problem Noted Date Diagnosed [...] 1 Assessment & Plan (11/05/2014 1:09 AM DESIGN ENGINEERING INTERN): - Currently NSR - On Coreg COPD (chronic obstructive pulmonary disease) 05/2014 Assessment & Plan (11/05/2014 1:07 AM DESIGN ENGINEERING INTERN): - On scheduled DuoNebs, O2 by NC Undiagnosed cardiac murmurs 07/31/2014 Mixed hyperlipidemia 07/31/2014 Essential hypertension, benign 07/31/2014 Assessment & Plan (11/05/2014 1:09 AM DESIGN ENGINEERING INTERN): - BP WNL on Coreg Resolved Problems Problem Noted Date Diagnosed Date Resolved Date Non-small cell carcinoma of lung 09/29/2014 11/06/2014 Assessment & Plan (11/05/2014 1:05 AM DESIGN ENGINEERING INTERN): - Pt with pulmonary adenocarcinoma R lung s/p VATS with R non-anatomic segmentectomy and thoracic LN dissection - Stable on 2 L NC - Pain control with Dilaudid epidural and ketorolac - Continue pain control - Wean O2 as tolerated Pneumothorax 09/27/2014 03/29/2025 Solitary pulmonary nodule 08/22/2014 Encounters Date Type Department Care Team Description 03/29/2025 1:00 PM CDT Office Visit [address] [phone] Floridalma Murillo APRN-CARLOS 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 (AF LURIA, FLUZONE TRIVALENT; 6MO+) (IIV3) 10/22/2015 Covid [email or web address] primary monoval ent 12+ yr 0.3mL Purple cap 01/31/2021,01/12/2021 FLU VACCINE QUAD IIV4 SPLIT 0.25 ML IM 08/21/2019 INFLUENZA VACCINE 08/22/2023 INFLUENZA VACCINE, HIGH-DOSE , QUADR. (FLUZONE HIGH-DOSE QUADRIVALENT; 65Y+), 0.7 ML (HD-IIV4) 09/04/2020,08/21/2019,08/26/2018,2017,08/30/2017,08/30/2017 PNEUMOCOCCAL PPSV23 08/26/2018 Pneumococcal Pcv13 Conj 08/30/2017 RSV AREXVY 60YR+ 0.5ML 08/22/2023 ZOSTER VACCINE, LIVE 10/22/2015 Zoster Hzv Vacc Recombinant Inj Im 06/20/2023, Family History Medical History Relation Name Comments Asthma Father Cancer Father RI Maternal Grandmother Cancer Mother Depression Mother Arrhythmia Paternal Grandfather Cancer Paternal Grandmother Relation Name Status Comments Father Maternal Grandmother Mother Paternal Grandfather Paternal Grandmother Social History Tobacco Use Types Packs/Day Years Used Date Smoking Tobacco: Former Cigarettes 1 30 0 12/01/1977 - 12/01/2007 Smokeless Tobacco: Never Tobacco Cessation:Counseling Given: Not [...] Recorded Patient Health Questionnaire-2 Score 0 03/29/2025 [facility] - Occupational Stress [...] any time in the past 12 m [facility], were you homeless or living in a custodial (including now)? No 09/13/2024 Comments No Sex and Gender Information Value Date Recorded Sex Assigned at Not on file Legal Sex Female 4:13 PM CDT Gender Identity Female 11/26/2024 8:17 AM DESIGN ENGINEERING INTERN Sexual Orientation Not on file Last Filed Vital Signs Vital Sign Reading Time Taken Comments Blood Pressure 144/73 03/29/2025 1:14 PM CDT Pulse 70 03/29/2025 1:14 PM CDT Temperature 36.4 C (97.5 F) 03/29/2025 1:14 PM CDT Respiratory Rate 9 12/21/2024 2:15 PM DESIGN ENGINEERING INTERN Oxygen Saturation 98% 03/29/2025 1:14 PM CDT Inhaled Oxygen Concentration - - Weight 81.6 kg (180 lb) 03/29/2025 1:14 PM CDT Height 180.3 cm (5' 11) 12/27/2024 11:07 AM DESIGN ENGINEERING INTERN Body Mass Index 25.1 12/27/2024 11:07 AM DESIGN ENGINEERING INTERN Plan of Treatment Upcoming Encounters Date Type Department Care Team (Late st Contact Info) Description 06/28/2025 12:40 PM CDT Documentation [facility] Cancer [address] [address] 06/28/2025 1:00 PM CDT Office Visit [facility] [address] [address] Honorio Oro MD [address] [place] [address] 07/27/2025 11:00 AM CDT Appointment [facility] Health Imaging Services - CT Scan [address] [facility] [address] [place] [address] 07/28/2025 11:00 AM CDT Office Visit [facility] Cancer Care - Radiation Oncology [address] [place], [place] [address] LIZBETH CUMMINGS [phone] Ronald Cruz MD [address] [place] [address] [place] [address] Health Maintenance Due Date Last Done Comments BONE DENSITY TESTING 1950 COLOGUARD (AGES 45-75) - COLON CA SCREENING 1950 COLON MONITORING 1950 COLONOSCOPY - COLON CA SCREENING 1950 CT COLONOGRAPHY - COLON CA SCREENING 1950 Colorectal Cancer Screening 1950 FIT - COLON CA SCREENING 1950 FLEX SIG - COLON CA SCREENING 1950 MAMMOGRAM 1950 MEDICARE AWV 12 MONTHS 1950 HEPATITIS C SCREENING 05/27/1969 DTAP/TDAP/TD VACCINES (1 - Tdap) 1970 COVID-19 VACCINE (2023- season) 2025 08/16/2024, 09/06/2023, 11/01/2022, Additional history exists PNEUMOCOCCAL VACCINE 50+ Completed 08/26/2018, 08/03 ZOSTER VACCINE Completed 06/20/2023, 03/02, 10/22/2015 Respiratory Syncytial Virus (RSV) Vaccine Pt: or over 60 yrs Completed 08/22/2023 INFLUENZA VACCINE Completed 08/16/2024, , 09/16/2022, Additional history exists DEPRESSION SCREENING Completed 12/13/2024, 03/03/2024, 12/25/2022, Additional history exists HEPATITIS B VACCINE Aged Out No longe r eligible based on patient's age to complete this topic HIB VACCINE Aged Out No longer eligi ble based on patient's age to complete this topic HPV VACCINE Aged Out No longer eligi ble based on patient's age to complete this topic MENINGOCOCCAL (Group B) VACCINE SHARED DECISION-MAKING Aged Out No longer eligible based on patient's age to complete this topic MENINGOCOCCAL GROUPS A/C/Y/W VACCINE Aged Out No longer eligible based on patient's age to complete this topic Medical Devices Implanted Type Area Data Center Solutions Architect Device Identifier Shelf Expiration Date Model / Serial / Lot Patch Cv 8x.8cm Photofix Decellularized Implanted:Qty: 1 on 09/13/2024 by Baudilio Beth MD at [facility] Left: Carotid [employer] [id number] 01/24/2026 [id number] / / [id number] Fiducial Markers-12/21/2024 Implanted:Qty: 2 on 12/21/2024 by rEic Castillo MD Left: Lung [employer] [facility] 03/26/2027 [id number] Procedures Procedure Name Priority Date/Time Associated Diagnosis Comments LDH BLOOD Routine 03/29/2025 2:20 PM CDT 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)- disease progression to LLL COMPREHENSIVE METABOLIC PANEL Routine 03/29/2025 2:20 PM CDT 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)- disease progression to LLL CBC W AUTO DIFFERENTIAL (CANCER CARE) Routine 03/29/2025 1:09 PM CDT 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)- disease progression to LLL from Last 3 Months Results * (ABNORMAL) COMPREHENSIVE METABOLIC PANEL (03/29/2025 2:20 PM CDT) Glucose 80 70 - 99 mg/dL [facility] INSURANCE BILL BUN 17 7 - 26 mg/dL [facility] INSURANCE BILL Creatinine 0.90 0.57 - 1.11 mg/dL [facility] INSURANCE BILL eGFR by CKD-EPI 68(L) >=90 mL/min/1.7 3 m2 [facility] INSURANCE BILL Sodium 140 136 - 145 mmol/L [facility] INSURANCE BILL Potassium 4.5 3.5 - 5.1 mmol/L [facility] INSURANCE BILL Chloride 104 98 - 107 mmol/L [facility] INSURANCE BILL CO2 27 22 - 29 mmol/L [facility] INSURANCE BILL Calcium 9.6 8.4 - 10.4 mg/dL [facility] INSURANCE BILL Protein Total 6.8 6.4 - 8.3 gm/dL [facility] INSURANCE BILL Albumin 4.1 3.4 - 5.0 gm/dL [facility] INSURANCE BILL Bilirubin Total 0.3 0.2 - 1.2 mg/dL [facility] INSURANCE BILL Alkaline Phosphatase 56 40 - 150 U/L [facility] INSURANCE BILL AST 22 10 - 48 U/L [facility] INSURANCE BILL ALT 15 6 - 57 U/L [facility] INSURANCE BILL Blood BLOOD SPECIMEN / Unknown 03/29/2025 2:20 PM CDT 03/29/2025 Comment:Blood Release to [facility] Narrative [facility] INSURANCE BILL - 03/29/2025 9:08 PM CDT Performed at: [address] [place] [id number] Osd Clerk: Dc Castaneda Dr, Phone: [phone] Floridalma Murillo ELECTROMECHANICAL EQUIPMENT TESTER-ALTERATION HAND LAB - CHEMISTRY OR DERABLES Final Result Performing Organization Address City/Va Hospital/ZIP Co de Phone Number [facility] INSURANCE BILL [address] [place] [address] * LDH BLOOD (03/29/2025 2:20 PM CDT) [facility] LDH 182 125 - 220 U/L [facility] INSURANCE BILL Blood BLOOD SPECIMEN / Unknown 03/29/2025 2:20 PM CDT 03/29/2025 Comment:Blood Release to [facility] INSURANCE BILL - 03/29/2025 9:08 PM CDT Performed at: [address] [place] [id number] Osd Clerk: Dc Castaneda Dr, Phone: [phone] Floridalma Murillo ELECTROMECHANICAL EQUIPMENT TESTER-ALTERATION HAND LAB - CHEMISTRY OR DERABLES Final Result Performing Organization Address City/[facility] Hospital/ZIP Co de Phone Number [facility] INSURANCE BILL [address] [place] [address] * (ABNORMAL) CBC W AUTO DIFFERENTIAL (CANCER CARE) (03/29/2025 1:09 PM CDT) Pathologist [facility] WBC 4.6 4.4 - 10.7 x10E9/L 03/29/2025 1:15 PM CDT [facility] Neutrophils % 65.2 44.0 - 73.0 % 03/29/2025 1:15 PM CDT [facility] Lymphocytes % 16.2(L) 20.0 - 43.0 % 03/29/2025 1:15 PM CDT [facility] Monocytes % 12.9 5.0 - 13.0 % 03/29/2025 1:15 PM CDT [facility] Eosinophils % 4.4 0.0 - 6.0 % 03/29/2025 1:15 PM CDT [facility] Basophils % 1.3 0.0 - 2.0 % 03/29/2025 1:15 PM CDT [facility] Neutrophil Absolute 2.99 2.01 - 7.14 x10E9/L 03/29/2025 1:15 PM CDT [facility] Lymphocytes Absolute 0.74(L) 1.07 - 3.94 x10E9/L 03/29/2025 1:15 PM CDT [facility] Monocytes Absolute 0.59 0.26 - 1.07 x10E9/L 03/29/2025 1:15 PM CDT [facility] Eosinophils Absolute 0.20 0 - 0.47 x10E9/L 03/29/2025 1:15 PM CDT [facility] Basophils Absolute 0.06 0 - 0.08 x10E9/L 03/29/2025 1:15 PM CDT [facility] RBC 4.31 3.80 - 5.20 x10E12/L 03/29/2025 1:15 PM CDT [facility] Hemoglobin 13.5 12.0 - 15.6 gm/dL 03/29/2025 1:15 PM CDT [facility] Hematocrit 42.0 35.9 - 45.5 % 03/29/2025 1:15 PM CDT [facility] MCV 97.4 80.7 - 98.3 fl 03/29/2025 1:15 PM CDT [facility] MCH 31.3 26.7 - 34.0 pg 03/29/2025 1:15 PM CDT [facility] MCHC 32.1 30.8 - 35.9 gm/dL 03/29/2025 1:15 PM CDT [facility] RDW-CV 13.1 12.1 - 14.9 % 03/29/2025 1:15 PM CDT [facility] Platelet Count 203 153 - 416 x10E9/L 03/29/2025 1:15 PM CDT [facility] MPV 10.2 9.4 - 12.9 fl 03/29/2025 1:15 PM CDT [facility] Blood BLOOD SPECIMEN / Unknown 03/29/2025 1:09 PM CDT 03/29/2025 1:09 PM CDT Floridalma Murillo APRN-ALTERATION HAND LAB - HEMATOLOGY O RDERABLES Final Result [facility] [address] [facility],[address] [address] from Last 3 Months Insurance [facility] MEDICARE Advance Directives * Full Code (Latest Code Status on File) Date Activated Date Inactivated Comments 09/16/2024 2:31 PM 09/17/2024 3:59 PM * Full Code Date Activated Date Inactivated Comments 11/03/2014 12:16 PM 11/06/2014 1:44 PM * Full Code Date Activated Date Inactivated Comments 09/27/2014 6:11 PM 10/03/2014 3:32 PM Care Teams Capper Machine Operator Relationship Specialty Start Date End Date Eric Good, NADEGE-ALTERATION HAND [address] [place] [address] PCP - General Nurse Practitioner 06/16/24 June Khan, RN Quality Control Chemist 09/28/14 Milad Pena MD [address] [place] [address] Block Hacker Cardiovascular Disease 12/25/22
--- OUTSIDE RECORDS SUMMARY | 2025-05-03 14:52 | XMS_ITS | Referral Summary ---
Author Organization [facility] [address] Address [address] [place] [address] Care Team Providers Care Design Verification Engineer Name Role Phone Herve Ramirez MD Unavailable [phone] Honorio Oro MD Unavailable Arden Mariscal MD Primary Care Provider [phone] Allergies Active Allergy Reactions Criticality Noted Date [...] 07/06/2018 Myalgia 01/19/2018 PAD (peripheral artery disease) ([facility]) 2016 Chronic anticoagulation 08/12/2017 Paroxysmal atrial flutter [...] Date Dyslipidemia 12/19/2016 10/28/2022 Overview (03/07/2017): Dyslipidemia Social History Tobacco Use Types Packs/Day Years Used Date Smoking Tobacco: Former Cigarettes Q uit: 08/12/2009 Smokeless Tobacco: Never Tobacco Cessation:Counseling Given: Not Answered Alcohol Use Standard Drinks/Week Comments Yes 3 (1 standard drink = 0.6 oz pur e alcohol) Comments Unknown Sex and Gender Information Value Date Recorded Sex Assigned at Not on file Legal Sex Female 6:04 AM MANAGER LOGISTIC Gender Identity Not on file Sexual Orientation Not on file Last Filed Vital Signs Vital Sign Reading Time Taken Comments Blood Pressure 116/72 12/05/2023 10:45 AM MANAGER LOGISTIC Pulse 75 12/05/2023 10:45 AM MANAGER LOGISTIC Temperature - - Respiratory Rate - - Oxygen Saturation 96% 12/05/2023 10:45 AM MANAGER LOGISTIC Inhaled Oxygen Concentration - - Weight 82.1 kg (181 lb 1.6 oz) 12/05/2023 10:45 AM MANAGER LOGISTIC Height 180.3 cm (5' 11) 12/05/2023 10:45 AM MANAGER LOGISTIC Body Mass Index 25.26 12/05/2023 10:45 AM MANAGER LOGISTIC Plan of Treatment Not on file Insurance [facility] Care Teams Design Verification Engineer Relationship Specialty Start Date End Date Arden Mariscal MD [address] [address] PCP - General Internal Medicine 04/25/22 Herve Ramirez MD [address] DEPT RADIATION ONCOLOGY, [address] [address] Radiation Oncology 08/15/21 Honorio Oro MD [address] [address] Referring Physician Internal Medicine 08/15/21
--- OUTSIDE RECORDS SUMMARY | 2025-05-03 14:52 | XMS_ITS | Encounter Summary ---
Author Organization [facility] Address [address] [facility] [address] [place] [address] Care Team Providers Care Senior Supplier Quality Engineer Name Role Phone Tricia Edward MD Primary Care Provider Tricia Edward MD Primary Care Provider Jeremy Mar MD Primary Care Provider [phone] Herve Ramirez MD Unavailable [phone] Honorio Oro MD Unavailable Arden Mariscal MD Primary Care Provider [phone] Encounter Details Date Type Department Care Team (Late st Contact Info) Description 12/19/2016 Orders Only [facility] Provider, MD Ana [address] [place] [address] Social History Tobacco Use Types Packs/Day Years Used Date Smoking Tobacco: Former Cigarettes Q uit: 12/01/2006 Alcohol Use Standard Drinks/Week Comments Yes 0 (1 standard drink = 0.6 oz pur e alcohol) Comments Unknown Sex and Gender Information Value Date Recorded Sex Assigned at Not on file Legal Sex Female 6:04 AM IMPACT HAMMER OPERATOR Gender Identity Not on file Sexual Orientation Not on file documented as of this encounter Plan of Treatment Not on file documented as of this encounter Procedures Procedure Name Priority Date/Time Associated Diagnosis Comments CARDIOLOGY REPORT 12/19/2016 documented in this encounter Results * CARDIOLOGY REPORT (12/19/2016) Anatomical Region Laterality Modality Other Narrative 12/19/2016 Ordered by an unspecified provider. us Historical Provider [facility] MIGUELITO NATARAJAN Final Result documented in this encounter Visit Diagnoses Not on filedocumented in this encounter Care Teams Senior Supplier Quality Engineer Relationship Specialty Start Date End Date Tricia Edward MD [address] [place] [address] PCP - General 02/28/17 08/14/21 Tricia Edward MD [address] [address] [place] [address] PCP - General 12/04/12 02/27/17 Jeremy Mar MD [address] [facility] [address] [place] [address] PCP - General Internal Medicine 08/15/21 04/24/22 Arden Mariscal MD [address] [address] [facility] [address] [place] [address] PCP - General Internal Medicine 04/25/22 Herve Ramirez MD [address] DEPT RADIATION ONCOLOGY, [address] [address] Radiation Oncology 08/15/21 Honorio Oro MD [address] [address] Referring Physician Internal Medicine 08/15/21 documented as of this encounter
--- NOTE | 2025-05-03 15:07 | ECHO_ITS ---
Patient Info Name: Safia Hamm Age: 74 years : 1950 Gender: Female Ht: 71 in Wt: 171 lbs BSA: 1.97 m2 HR: 87 bpm BP: 151 / 75 mmHg Technical Quality: Good Exam Date: 05/03/2025 3:15 PM Patient Status: O Admit Date: 05/03/2025 Exam Type: CA echo doppler color flow Complete two-dimensional, color flow and Doppler transthoracic echocardiogram is performed. Welding Operator: Kari Starks Attending Provider: Baljinder Mccord DO Summary 1. Complete two-dimensional, color flow and Doppler transthoracic echocardiogram is performed. 2. Left ventricular chamber dimension is normal. 3. Left ventricular systolic function is normal, estimated at 65-70. 4. The left ventricular diastolic function is grade I diastolic dysfunction. 5. E/e' 9 is minimally elevated. 6. There is severe aortic valve sclerosis. 7. There is moderate aortic valve stenosis with a peak velocity of 301 cm/s, mean gradient of 21 mmHg, and aortic valve area of 1.0 cm2. 8. The mitral valve has a mildly calcified annulus. 9. There is mild tricuspid valve regurgitation. 10. No pulmonary hypertension, estimated pulmonary arterial systolic pressure is 27 mmHg. Left Ventricle E/e' 9 is minimally elevated. Left ventricular chamber dimension is normal. Left ventricular systolic function is normal, estimated at 65-70. The left ventricular diastolic function is grade I diastolic dysfunction. Right Ventricle Right ventricular chamber dimension is normal. Right ventricular systolic function is normal and with normal TAPSE 1.9 cm. Left Atria Left atrial chamber dimension is normal. Right Atria Right atrial chamber dimension is normal. Aortic Valve The aortic valve is probable trileaflet. There is severe aortic valve sclerosis. There is moderate aortic valve stenosis with a peak velocity of 301 cm/s, mean gradient of 21 mmHg, and aortic valve area of 1.0 cm2. There is no aortic valve regurgitation. Pulmonic Valve There is no pulmonic regurgitation. Mitral Valve The mitral valve has a mildly calcified annulus. There is no mitral valve stenosis. There is no mitral valve regurgitation. Tricuspid Valve There is mild tricuspid valve regurgitation. No pulmonary hypertension, estimated pulmonary arterial systolic pressure is 27 mmHg. Pericardium/Pleural There is no pericardial effusion. Inferior Vena Cava Normal inferior vena cava with >50% collapse upon inspiration consistent with normal right atrial pressure, 5 mmHg. Aorta The aortic root size at the sinus of Valsalva is normal. Left Ventricular Outflow Tract Name Value Normal LVOT 2D LVOT Diameter 2.1 cm LVOT Doppler LVOT Peak Velocity 87 cm/s LVOT Peak Gradient 3 mmHg LVOT Mean Gradient 2 mmHg LVOT VTI 20 cm LVOT VTI/AV VTI Ratio 0.3 LVOT Stroke Volume 70 ml LVOT CO 12.8 l/min LVOT CI 6.5 l/min/m2 Pulmonic Valve Name Value Normal PV Doppler PV Peak Velocity 93 cm/s PV Peak Gradient 3 mmHg Mitral Valve Name Value Normal MV Diastolic Function MV E Peak Velocity 74 cm/s MV A Peak Velocity 106 cm/s MV E/A 0.7 MV Decel Time (PW) 311 ms MV Annular TDI MV E/e' (Septal) 10.4 MV E/e' (Lateral) 8.5 MV E/e' (Average) 9.4 Tricuspid Valve Name Value Normal TV Regurgitation Doppler TR Peak Velocity 235 cm/s TR Peak Gradient 20 mmHg Estimated PAP/RSVP RA Pressure 5 mmHg <=5 PA Systolic Pressure 27 mmHg <36 RV Systolic Pressure 27 mmHg <36 TV Annular TDI TV Lateral Mariola s' Velocity 14.8 cm/s >=9.5 Aorta Name Value Normal Ascending Aorta Ao Root Diameter (MM) 2.9 cm Ao Root Diam Index (MM) 1.5 cm/m2 Aortic Valve Name Value Normal AV Doppler AV Peak Velocity 301 cm/s AV Peak Gradient 36 mmHg AV Mean Gradient 21 mmHg AV VTI 68 cm AV Area (Cont Eq VTI) 1.0 cm2 >=3.0 AV Area (Cont Eq Calderon) 1.0 cm2 AV DI (Calderon) 0.29 AV Regurgitation 2D LVOT Area 3.5 cm2 Ventricles Name Value Normal LV Dimensions 2D/MM IVS Diastolic Thickness (2D) 0.9 cm 0.6-1.0 LVID Diastole (2D) 4.1 cm 3.8-5.2 LVIW Diastolic Thickness (2D) 1.0 cm 0.6-0.9 LVID Systole (2D) 3.1 cm 2.2-3.5 LVOT Diameter 2.1 cm LV Mass (2D Cubed) 122.01 g 67.00-162.00 LV Mass Index (2D Cubed) 62 g/m2 43-95 Relative Wall Thickness (2D) 0.47 <=0.42 LV Fractional Shortening/Ejection Fraction 2D/MM LV Fractional Shortening (2D) 25 % 27-45 LV EF (2D Teichholz) 49 % LV Diastolic Volume (4C MOD) 74 ml LV EF (4C MOD) 62 % LV Diastolic Volume (2C MOD) 63 ml LV EF (2C MOD) 64 % LV Diastolic Volume (BP MOD) 68 ml 46-106 LV Diastolic Volume Index (BP MOD) 35 ml/m2 29-61 LV Systolic Volume (BP MOD) 25 ml 14-42 LV Systolic Volume Index (BP MOD) 13 ml/m2 8-24 LV EF (BP MOD) 63 % 54-74 LV Diastolic Length (4C) 7.2 cm LV Systolic Length (4C) 5.9 cm LV Stroke Volume (4C MOD) 46 ml RV Dimensions 2D/MM RVID Diastole (2D) 3.3 cm 2.1-3.5 Atria Name Value Normal LA Dimensions LA Dimension (MM) 3.2 cm 2.7-3.8 LA Volume (4C A-L) 43 ml LA Volume (BP A-L) 45 ml RA Dimensions RA Systolic Major [place] Length (4C) 3.7 cm 2.2-2.8 RA Area (4C) 10.5 cm2 <=18.0 Report Signatures
[2025-05-03 15:25] LABS: INR 2.1; Prothrombin Time 23.4 Seconds (11.1-14.7)
[2025-05-03 15:41] LABS: Cholesterol 226 mg/dL (0-200); HDL Direct 76 mg/dL; Triglycerides 128 mg/dL (<150)
[2025-05-03 15:53] LABS: LDL Cholesterol Direct 109 mg/dL
== END 2025-05-03 14:49 | disposition home or self-care (01) ==
PROVIDERS: PCP Nurse Practitioner; Visit Provider Internal Medicine Cardiovascular Disease
DX: E78.5 Hyperlipidemia, unspecified (principal); I48.0 Paroxysmal atrial fibrillation
CPT/HCPCS: 36415; 80061; 85610; 93306

== ENCOUNTER 2025-08-18 11:41 | Outpatient (CLI) | payer OTHER, SELFPAY ==
--- OUTSIDE RECORDS SUMMARY | 2025-08-18 11:53 | XMS_ITS | Clinical Summary ---
Author Organization [email or web address] Address [address] [place] [address] Care Team Providers Care Vocational Education Professional Name Role Phone June Khan RN Unavailable Milad Pena MD Unavailable [phone] Eric Good DIGITAL SOLUTION ARCHITECT-LEASE BUYER Primary Care Provider Source Comments [email or web address],non-owned Affiliates and Associated Physician Practices is amultiple site organization consisting of ambulatory clinics and hospital sitesin [place], [place], [place] and [place]. This disclosure is being madepursuant to the Care Everywhere program and may not contain all informatio navailable regarding this patient. Last updated 18.[email or web address] [email or web address] Allergies Active Allergy Reactions Criticality Noted Date [...] 4 5 Active cetirizine (ZYRTEC) 10 MG tabletIndicati ons:vertigo Take 1 (one) tablet by mouth at bedtime Reasons: vertigo Active albuterol HFA (PROVENTIL;VITOR TOLIN;PROAIR) 108 (90 Base) MCG/ACT inhaler Inhale 1 (one) puff to 2 (two) puffs by mouth every 4 hours as needed 1 Active WIXELA INHUB 250-50 MCG/DOSE inhaler Inhale 1 (one) puff by mouth 2 times daily 1 Active acetaminophen CR (TYLENOL ARTHRITIS PAIN) 650 MG tabletIndicati ons:Pain Take 1 (one) tablet by mouth every [...] (one) tablet by mouth once daily Active losartan (Cozaar) 25 MG tablet Take 1 (one) tablet by mouth once daily Active atorvastatin (Lipitor) 10 MG tablet Take 1 (one) tablet by mouth at bedtime 07/28/20 25 Discontinu ed(List Clean-Up) metoprolol succinate XL 24hr (Toprol XL) 100 MG tablet Take 1 (one) tablet by mouth once daily 07/28/20 25 Discontinu ed(List Clean-Up) Active Problems Problem Noted Date Diagnosed Date Encounter for follow-up surveillance of lung can cer 07/28/2025 Gastroesophageal reflux disease 03/29/2025 History of radiation [...] 1 Assessment & Plan (11/05/2014 1:09 AM EXTRUSION UTILITY WORKER): - Currently NSR - On Coreg COPD (chronic obstructive pulmonary disease) 05/2014 Assessment & Plan (11/05/2014 1:07 AM EXTRUSION UTILITY WORKER): - On scheduled DuoNebs, O2 by NC Undiagnosed cardiac murmurs 07/31/2014 Mixed hyperlipidemia 07/31/2014 Essential hypertension, benign 07/31/2014 Assessment & Plan (11/05/2014 1:09 AM EXTRUSION UTILITY WORKER): - BP WNL on Coreg Resolved Problems Problem Noted Date Diagnosed Date Resolved Date Non-small cell carcinoma of lung 09/29/2014 11/06/2014 Assessment & Plan (11/05/2014 1:05 AM EXTRUSION UTILITY WORKER): - Pt with pulmonary adenocarcinoma R lung s/p VATS with R non-anatomic segmentectomy and thoracic LN dissection - Stable on 2 L NC - Pain control with Dilaudid epidural and ketorolac - Continue pain control - Wean O2 as tolerated Pneumothorax 09/27/2014 03/29/2025 Solitary pulmonary nodule 08/22/2014 Encounters Date Type Department Care Team Description 07/28/2025 11:00 AM CDT Office Visit [facility] - Radiation Oncology [address], [address] [place] [address] Ronald Cruz MD Encounter for follow-up surveillance of lung cancer (Primary Dx) 07/28/2025 Travel 07/27/2025 9:35 AM CDT - 07/27/2025 11:59 PM CDT Hospital Encounter [facility] Imaging Services - CT Scan [address] [place] [address] Ronald Cruz MD Radiation Oncology Discharge Disposition: Home or Self Care 06/24/2025 12:00 PM CDT Office Visit [facility] Cancer Care [address] [place] [address] Honorio Oro MD 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) (Primary Dx); Centrilobular emphysema (HCC); Primary cancer of right upper lobe of lung (HCC); Nodule of lower lobe of left lung; Paroxysmal atrial fibrillation (HCC) from Last 3 Months Immunizations Immunization Administration Dates Next Due INFLUENZA VACCINE, TRIV. (AF LURIA, FLUZONE TRIVALENT; 6MO+) (IIV3) 10/22/2015 Covid Social 2 Step primary monoval ent 12+ yr 0.3mL Purple [...] Relation Name Comments Asthma Father Cancer Father CA Maternal Grandmother Cancer Mother Depression Mother Arrhythmia [...] Date Recorded Patient Health Questionnaire-2 Score 0 06/24/2025 [facility] Occupat ional [facility] - Occupational Stress [...] any time in the past 12 [place], were you homeless or living in a [place] health care facility (including now)? No 09/13/2024 Comments No Sex and Gender Information Value Date Recorded Sex Assigned at Not on file Legal Sex Female 4:13 PM CDT Gender Identity Female 11/26/2024 8:17 AM EXTRUSION UTILITY WORKER Sexual Orientation Not on file Last Filed Vital Signs Vital Sign Reading Time Taken Comments Blood Pressure 162/79 07/28/2025 11:11 AM CDT Pulse 76 07/28/2025 11:11 AM CDT Temperature 36.3 C (97.3 F) 06/24/2025 12:13 PM CDT Respiratory Rate 20 07/28/2025 11:11 AM CDT Oxygen Saturation 99% 07/28/2025 11:11 AM CDT Inhaled Oxygen Concentration - - Weight 82.1 kg (181 lb) 07/28/2025 11:11 AM CDT Height 180.3 cm (5' 11) 06/24/2025 12:13 PM CDT Body Mass Index 25.24 06/24/2025 12:13 PM CDT Plan of Treatment Upcoming Encounters Date Type Department Care Team (Late st Contact Info) Description 09/28/2025 12:40 PM CDT Documentation [facility] Cancer [address] [address] 09/28/2025 1:00 PM CDT Office Visit [facility] Cancer Care [address] [place] [address] [place] [phone] Floridalma Murillo APRN-CARLOS [address] [place] [address] [address] [place] [address] 12/30/2025 10:40 AM EXTRUSION UTILITY WORKER Documentation [facility] Cancer [address] [address] 12/30/2025 11:00 AM EXTRUSION UTILITY WORKER Office Visit [address] [address] Honorio Oro MD [address] [place] [address] 01/26/2026 11:00 AM EXTRUSION UTILITY WORKER Appointment [facility] Health Imaging Services - CT Scan [address] [place] [address], [address] [address] 07/24/2026 11:00 AM CDT Appointment [facility] Health Imaging Services - CT Scan [address] [place] [address], [address] [address] 07/27/2026 11:00 AM CDT Office Visit [facility] Cancer [facility] - Radiation Oncology [address] [place] [phone] Ronald Cruz MD [address] [place] [address] Health Maintenance Due Date Last Done Comments [...] VACCINES (1 - Tdap) 1970 COVID-19 VACCINE ( season) 2025 08/16/2024, 09/06/2023, 11/01/2022, Additional history exists INFLUENZA VACCINE (#1) 2025 , 08/22/2023, 09/16/2022, Additional history exists PNEUMOCOCCAL VACCINE 50+ Completed 08/26/2018, 08/03 ZOSTER VACCINE Completed 06/20/2023, 03/02, 10/22/2015 Respiratory Syncytial Virus (RSV) Vaccine Pt: or over 60 yrs Completed 08/22/2023 DEPRESSION SCREENING Completed 12/13/2024, 03/03/2024, 12/25/2022, Additional [...] this topic Medical Devices Implanted Type Area Granulating Blender Device Identifier Shelf Expiration Date Model / Serial / Lot Patch Cv 8x.8cm Photofix Decellularized Implanted:Qty: 1 on 09/13/2024 by Baudilio Beth MD at [facility] Left: Carotid [employer] [id number] 01/24/2026 [id number] / / [id number] Fiducial Markers-12/21/2024 Implanted:Qty: 2 on 12/21/2024 by Eric Castillo MD Left: Lung [employer] 03/26/2027 [id number] / / [id number] Procedures Procedure Name Priority Date/Time Associated Diagnosis Comments CT CHEST WO CONTRAST Routine 07/27/2025 10:28 AM CDT Primary malignant neoplasm of left lower lobe of lung (HCC) CBC W AUTO DIFFERENTIAL (CANCER CARE) Routine 06/24/2025 11:53 AM CDT 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) LDH BLOOD Routine 06/24/2025 11:53 AM CDT 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) COMPREHENSIVE METABOLIC PANEL Routine 06/24/2025 11:53 AM CDT 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) from Last 3 Months Results * CT CHEST NON CONTRAST (07/27/2025 10:28 AM CDT) Anatomical Region Laterality Modality Chest Computed Tomogra phy 07/27/2025 10:5 1 AM CDT Impressions 07/27/2025 10:58 AM CDT IMPRESSION: 1. New radiation fiducials in the left lower lobe mass. Although the masslike density is increased, this is most likely due to combinations of atelectasis and fibrosis from treatment. Recommend attention on follow-up. 2. Chronic bilateral upper lobe treated masses containing fiducials, both of which are similar to slightly decreased in size. 3. No chest adenopathy. 4. Coronary atherosclerosis. 5. Other chronic and incidental findings as described > Interpreting Provider: Lakisha Gama MD on 07/27/2025 10:58 AM Narrative 07/27/2025 10:58 AM CDT PROCEDURE: CT CHEST WO CONTRAST DATE/TIME OF EXAM: 07/27/2025 10:28 AM CLINICAL INFORMATION: None relevant/not provided if blank. Indication: C34.32: Primary malignant neoplasm of left lower lobe of lung (HCC) Additional History: COMPARISON: PET/CT from 12/13/[address] from 05/28/2024 TECHNIQUE: CT of the chest was performed without intravenous contrast utilizing standard protocol. CT dose reduction technique was used, including Automated Exposure Control. FINDINGS: In the anterior segment of the right upper lobe radiation fiducials are centered within the mass. Currently the mass measures 2.2 x 1.7 cm in axial size and previously measured 3.2 x 1.6 cm indicating a slight decrease. In the anterior segment left upper lobe there is additional fiducials with a somewhat thick linear opacity. Thickness of this tissue is not significantly changed, currently measuring 1.0 cm and previously measuring 1.1 cm. In the anterior segment of the left upper lobe a small triangular shaped spiculated opacity is unchanged. In the left lung base near the diaphragm a previously seen soft tissue mass now contains new fiducials. The surrounding soft tissue is increased in size but with central air bronchograms suggesting there is fibrosis/atelectasis. Recommend attention on follow-up. There are are additional small noncalcified intrapulmonary nodules in both lungs which are not significantly changed. No new lung nodules or mass. Incidental right diaphragmatic eventration. No acute pneumonia or pleural effusion. The trachea and bronchi are patent. The heart size is normal without pericardial effusion. There is heavy calcified plaque in the coronary arteries. The thoracic aorta is normal in size and is atherosclerotic. No significant mediastinal or axillary adenopathy. The visualized thyroid is normal. The visualized portions of the liver and spleen are unremarkable. No significant bony findings. Procedure Note Lakisha Gama MD - 07/27/2025 PROCEDURE: CT CHEST WO CONTRAST DATE/TIME OF EXAM: 07/27/2025 10:28 AM CLINICAL INFORMATION: None relevant/not provided if blank. Indication: C34.32: Primary malignant neoplasm of left lower lobe oflung (HCC) Additional History: COMPARISON: PET/CT from 12/13/[address] from 05/28/2024 TECHNIQUE: CT of the chest was performed without intravenous contrast utilizing standard protocol. CT dose reduction technique was used, including Automated ExposureControl. FINDINGS: In the anterior segment of the right upper lobe radiation fiducials are centered within the mass. Currently the mass measures 2.2 x 1.7 cm in axial size and previously measured 3.2 x 1.6 cm indicating a slight decrease. In the anterior segment left upper lobe there is additional fiducialswith a somewhat thick linear opacity. Thickness of this tissue is not significantly changed, currently measuring 1.0 cm and previouslymeasuring 1.1 cm. In the anterior segment of the left upper lobe a small triangular shaped spiculated opacity is unchanged. In the left lung base near the diaphragm a previously seen soft tissuemass now contains new fiducials. The surrounding soft tissue is increased in size but with central air bronchograms suggesting there is fibrosis/atelectasis. Recommend attention on follow-up. There are are additional small noncalcified intrapulmonary nodules inboth lungs which are not significantly changed. No new lung nodules or mass. Incidental right diaphragmatic eventration. No acute pneumonia orpleural effusion. The trachea and bronchi are patent. The heart size is normal without pericardial effusion. There is heavy calcified plaque in the coronary arteries. The thoracic aorta is normalin size and is atherosclerotic. No significant mediastinal or axillary adenopathy. The visualized thyroid is normal. The visualized portions of the liver and spleen are unremarkable. No significant bony findings. IMPRESSION: 1. New radiation fiducials in the left lower lobe mass. Although the masslike density is increased, this is most likely due to combinationsof atelectasis and fibrosis from treatment. Recommend attention onfollow-up. 2. Chronic bilateral upper lobe treated masses containing fiducials,both of which are similar to slightly decreased in size. 3. No chest adenopathy. 4. Coronary atherosclerosis. 5. Other chronic and incidental findings as described > Interpreting Provider: Lakisha Gama MD on 07/27/2025 10:58 AM Ronald Cruz MD CT ORDERABLES Final Res ult * (ABNORMAL) CBC W AUTO DIFFERENTIAL (CANCER CARE) (06/24/2025 11:53 AM CDT) WBC 5.2 4.4 - 10.7 x10E9/L 06/24/2025 12:07 PM CDT [facility] Neutrophils % 69.0 44.0 - 73.0 % 06/24/2025 12:07 PM CDT [facility] Lymphocytes % 16.8(L) 20.0 - 43.0 % 06/24/2025 12:07 PM CDT [facility] Monocytes % 10.6 5.0 - 13.0 % 06/24/2025 12:07 PM CDT [facility] Eosinophils % 2.1 0.0 - 6.0 % 06/24/2025 12:07 PM CDT [facility] Basophils % 1.3 0.0 - 2.0 % 06/24/2025 12:07 PM CDT [facility] Immature Granulocytes 0.2 <=1 % 06/24/2025 12:07 PM CDT [facility] Neutrophil Absolute 3.58 2.01 - 7.14 x10E9/L 06/24/2025 12:07 PM CDT [facility] Lymphocytes Absolute 0.87(L) 1.07 - 3.94 x10E9/L 06/24/2025 12:07 PM CDT [facility] Monocytes Absolute 0.55 0.26 - 1.07 x10E9/L 06/24/2025 12:07 PM CDT [facility] Eosinophils Absolute 0.11 0 - 0.47 x10E9/L 06/24/2025 12:07 PM CDT [facility] Basophils Absolute 0.07 0 - 0.08 x10E9/L 06/24/2025 12:07 PM CDT [facility] RBC 4.16 3.80 - 5.20 x10E12/L 06/24/2025 12:07 PM CDT [facility] Hemoglobin 13.0 12.0 - 15.6 gm/dL 06/24/2025 12:07 PM CDT [facility] Hematocrit 39.1 35.9 - 45.5 % 06/24/2025 12:07 PM CDT [facility] MCV 94.0 80.7 - 98.3 fl 06/24/2025 12:07 PM CDT [facility] MCH 31.3 26.7 - 34.0 pg 06/24/2025 12:07 PM CDT [facility] MCHC 33.2 30.8 - 35.9 gm/dL 06/24/2025 12:07 PM CDT [facility] RDW-CV 12.6 12.1 - 14.9 % 06/24/2025 12:07 PM CDT [facility] Platelet Count 209 153 - 416 x10E9/L 06/24/2025 12:07 PM CDT [facility] MPV 10.2 9.4 - 12.9 fl 06/24/2025 12:07 PM CDT [facility] NRBC 0.0 <=0 /100 WBC 06/24/2025 12:07 PM CDT [facility] Blood BLOOD SPECIMEN / Unknown 06/24/2025 11:53 AM CDT 06/24/2025 11:53 AM CDT us Honorio Oro MD LAB - HEMATOLOGY ORDERABLES Margarita l Result [facility] [id number] * (ABNORMAL) COMPREHENSIVE METABOLIC PANEL (06/24/2025 11:53 AM CDT) Glucose 90 70 - 99 mg/dL [facility] INSURANCE BILL BUN 18 7 - 26 mg/dL [facility] INSURANCE BILL Creatinine 0.88 0.57 - 1.11 mg/dL [facility] INSURANCE BILL eGFR by CKD-EPI 69(L) >=90 mL/min/1.7 3 m2 [facility] INSURANCE BILL Comment: Estimated Glomerular Filtration Rate (eGFR) calculated using the CKD-EPI Creatinine Equation (2020), per the [employer] [place] [employer] and [place] [employer] of Neph[employer] recommend ations. Sodium 141 136 - 145 mmol/L [facility] INSURANCE BILL Potassium 5.1 3.5 - 5.1 mmol/L [facility] INSURANCE BILL Chloride 105 98 - 107 mmol/L [facility] INSURANCE BILL CO2 27 22 - 29 mmol/L [facility] INSURANCE BILL Calcium 9.4 8.4 - 10.4 mg/dL [facility] INSURANCE BILL Protein Total 6.5 6.4 - 8.3 gm/dL [facility] INSURANCE BILL Albumin 4.0 3.1 - 4.5 gm/dL [facility] INSURANCE BILL Bilirubin Total 0.4 0.2 - 1.2 mg/dL [facility] INSURANCE BILL Alkaline Phosphatase 54 40 - 150 U/L [facility] INSURANCE BILL AST 22 10 - 48 U/L [facility] INSURANCE BILL ALT 18 6 - 57 U/L [facility] INSURANCE BILL Blood BLOOD SPECIMEN / Unknown 06/24/2025 11:53 AM CDT 06/24/2025 Comment:Blood Release to pat i Narrative [facility] INSURANCE BILL - 06/24/2025 6:09 PM CDT Performed at: [address] [place] [address] [id number] Ring Stamper: Dc [address], Phone: [phone] Honorio Oro MD LAB - CHEMISTRY ORDERABLES Final Result [facility] INSURANCE BILL [address] [place] [address] * LDH BLOOD (06/24/2025 11:53 AM CDT) [facility] LDH 171 125 - 220 U/L [facility] INSURANCE BILL Blood BLOOD SPECIMEN / Unknown 06/24/2025 11:53 AM CDT 06/24/2025 Comment:Blood Release to pat i Narrative [facility] INSURANCE BILL - 06/24/2025 6:09 PM CDT Performed at: [address] [place] [address] [id number] Ring Stamper: Dc Cast[address]eda [address], Phone: [phone] Honorio Oro MD LAB - CHEMISTRY ORDERABLES Final Result Performing Organization Address City/[facility] de Phone Number [facility] INSURANCE BILL [address] [place] [address] from Last [address] [facility] MEDICARE Advance Directives * Full Code (Latest Code Status on File) Date Activated Date Inactivated Comments 09/16/2024 2:31 PM 09/17/2024 3:59 PM * Full Code Date Activated Date Inactivated Comments 11/03/2014 12:16 PM 11/06/2014 1:44 PM * Full Code Date Activated Date Inactivated Comments 09/27/2014 6:11 PM 10/03/2014 3:32 PM Care Teams Vocational Education Professional Relationship Specialty Start Date End Date Eric Good, DIGITAL SOLUTION ARCHITECT-LEASE BUYER [address] [place], [place] [id number] PCP - General Nurse Practitioner 06/16/24 June Khan, RN Rotary Driller 09/28/14 Milad Pena MD [address] [place] [address] Legal Records Clerk Cardiovascular Disease 12/25/22
--- OUTSIDE RECORDS SUMMARY | 2025-08-18 11:53 | XMS_ITS | Encounter Summary ---
Author Organization [facility] Health Address [address] [place] [address] Care Team Providers Care Bank Reconciliator Name Role Phone June Khan RN Unavailable [phone] Bentley VillarrealC Primary Care Provide r Milad Pena MD Unavailable [phone] Eric Good APRN-FISH SMOKER Primary Care Provider Encounter Details Date Type Department Care Team (Late st Contact Info) Description 05/21/2024 [facility] Outpatient Visit [facility] Cancer Care [address] [address] Honorio Oro MD [address] [id number] Social History Tobacco Use Types Packs/Day Years [...] CDT Gender Identity Female 11/26/2024 8:17 AM FLOORING PROFESSIONAL Sexual Orientation Not on file documented as [...] Info) Description 09/28/2025 12:40 PM CDT Documentation [address] [address] 09/28/2025 1:00 PM CDT Office Visit [address] [address] Floridalma Murillo, PHYSICAL SCIENCE PROFESSOR-FISH SMOKER [address] [place] [address] 12/30/2025 10:40 AM FLOORING PROFESSIONAL Documentation [facility] Cancer [address] [address] 12/30/2025 11:00 AM FLOORING PROFESSIONAL Office Visit [address] [address] Honorio Oro MD [address] [place] [address] 01/26/2026 11:00 AM FLOORING PROFESSIONAL Appointment [facility] - CT Scan [address], [address] [place] [address] 07/24/2026 11:00 AM CDT Appointment [facility] Health Imaging Services - CT Scan [address], [address] [place] [address] 07/27/2026 11:00 AM CDT Office Visit [facility] Health Cancer Care - Radiation Oncology [address] [facility] [address] [place] [address] Ronald Cruz MD [address] [facility] [address] [place] [address] documented as of this encounter Visit Diagnoses Not on filedocumented in this encounter Care Teams Bank Reconciliator Relationship Specialty Start Date End Date Bentley Villarreal PA-C [address] [address] [address] [place] [address] PCP - General Physician Contact Lens Edge Buffer 06/19/22 06/15/24 Eric Good APRN-FISH SMOKER [address] [place] [address] PCP - General Nurse Practitioner 06/16/24 June Khan, RN Middle School Music Teacher 09/28/14 Milad Pena MD [address] [facility] [address] [place] [address] Manager Physical Cardiovascular Disease 12/25/22 documented as of this encounter
--- OUTSIDE RECORDS SUMMARY | 2025-08-18 11:53 | XMS_ITS ---
Author Organization [facility] Address [address] [facility] [place] [address] Care Team Providers Care Director Of Retention Name Role Phone June Khan RN Unavailable Milad Pena MD Unavailable [phone] Eric Good IMMUNOHEMATOLOGIST-SHOES HAND SEWER Primary Care Provider Active Problems Problem Noted [...] 1 Assessment & Plan (11/05/2014 1:09 AM SEWING MACHINES SALESPERSON): - Currently NSR - On Coreg COPD (chronic obstructive pulmonary disease) 05/2014 Assessment & Plan (11/05/2014 1:07 AM SEWING MACHINES SALESPERSON): - On scheduled DuoNebs, O2 by [place] Undiagnosed cardiac murmurs 07/31/2014 Mixed hyperlipidemia 07/31/2014 Essential hypertension, benign 07/31/2014 Assessment & Plan (11/05/2014 1:09 AM SEWING MACHINES SALESPERSON): - BP WNL on Coreg Current Treatment [...] 11/06/2014 Assessment & Plan (11/05/2014 1:05 AM SEWING MACHINES SALESPERSON): - Pt with pulmonary adenocarcinoma R lung s/p VATS with R non-anatomic segmentectomy and thoracic LN dissection - Stable on 2 L NC - Pain control with Dilaudid epidural and ketorolac - Continue pain control - Wean O2 as tolerated Pneumothorax 09/27/2014 03/29/2025 Solitary pulmonary nodule 08/22/2014
--- OUTSIDE RECORDS SUMMARY | 2025-08-18 11:53 | XMS_ITS | Clinical Summary ---
Author Organization [facility] Care Team Providers Care Remelt Operator Name Role Phone Unavailable Primary Care Provider [...] Virus (HCV) Screening 1950 TdaP Immunization 1950 Cologuard 1996 Colonoscopy 1996 Colorectal Cancer Screening 1996 Immunochemical Fecal Occult Blood 1996 Zoster Immunization (2 of 3) 12/17/2015 10/22/2015 Influenza Immunization (#1) 08/01/202503/2020, 08/21/2019, 08/26/2018, Additional history exists SARS-COV-2 Immunization ( season) 2025 09/11/2021, 01/31/2021, 01/12/2021 Respiratory Syncytial Virus (RSV) Immunization (Adult) (1 [...]
--- OUTSIDE RECORDS SUMMARY | 2025-08-18 11:53 | XMS_ITS | Encounter Summary ---
Author Organization [facility] Health Address [address] [place] [address] Care Team Providers Care Paper Sorter Name Role Phone June Khan RN Unavailable [phone] Bentley VillarrealC Primary Care Provide r Milad Pena MD Unavailable [phone] Eric Good APRN-CORE MAN Primary Care Provider Encounter Details Date Type Department Care Team (Late st Contact Info) Description 05/21/2024 [facility] Outpatient Visit [facility] Cancer Care [address] [address] Honorio Oro MD [address] [id number] Social History Tobacco Use Types Packs/Day Years [...] CDT Gender Identity Female 11/26/2024 8:17 AM BIOMASS TECHNICIAN Sexual Orientation Not on file documented as [...] Info) Description 09/28/2025 12:40 PM CDT Documentation [address] [address] 09/28/2025 1:00 PM CDT Office Visit [address] [address] Floridalma Murillo, COAL CUTTING MACHINE OPERATOR-CORE MAN [address] [place] [address] 12/30/2025 10:40 AM BIOMASS TECHNICIAN Documentation [facility] Cancer [address] [address] 12/30/2025 11:00 AM BIOMASS TECHNICIAN Office Visit [address] [address] Honorio Oro MD [address] [place] [address] 01/26/2026 11:00 AM BIOMASS TECHNICIAN Appointment [facility] - CT Scan [address] [place] [address] 07/24/2026 11:00 AM CDT Appointment [facility] Health Imaging Services - CT Scan [address], [address] [place] [address] 07/27/2026 11:00 AM CDT Office Visit [facility] Health Cancer Care - Radiation Oncology [address] [facility] [address] [place] [address] Ronald Cruz MD [address] [facility] [address] [place] [address] documented as of this encounter Visit Diagnoses Not on filedocumented in this encounter Care Teams Paper Sorter Relationship Specialty Start Date End Date Bentley Villarreal PA-C [address] [address] [address] [place] [address] PCP - General Physician Supervisor Mail Carriers 06/19/22 06/15/24 Eric Good APRN-CORE MAN [address] [place] [address] PCP - General Nurse Practitioner 06/16/24 June Khan, RN Advanced Solutions Architect 09/28/14 Milad Pena MD [address] [facility] [address] [place] [address] Technical Communicator Cardiovascular Disease 12/25/22 documented as of this encounter
--- OUTSIDE RECORDS SUMMARY | 2025-08-18 11:53 | XMS_ITS | Clinical Summary ---
Author Organization [facility] [address] Address [address] [place] [address] Care Team Providers Care Transport Technician Name Role Phone Herve Ramirez MD Unavailable [phone] Honorio Oro MD Unavailable Arden Mariscal MD Primary Care Provider [phone] Allergies Active Allergy Reactions Criticality Noted Date [...] 07/06/2018 Myalgia 01/19/2018 PAD (peripheral artery disease) ([facility]/HCC) 2016 Chronic anticoagulation 08/12/2017 Paroxysmal atrial flutter [...] on file Legal Sex Female 6:04 AM FRONT DESK ASSISTANT Gender Identity Not on file Sexual Orientation Not on file Obstetrics History Last Filed Vital Signs Vital Sign Reading Time Taken Comments Blood Pressure 116/72 12/05/2023 10:45 AM FRONT DESK ASSISTANT Pulse 75 12/05/2023 10:45 AM FRONT DESK ASSISTANT Temperature - - Respiratory Rate - - Oxygen Saturation 96% 12/05/2023 10:45 AM FRONT DESK ASSISTANT Inhaled Oxygen Concentration - - Weight 82.1 kg (181 lb 1.6 oz) 12/05/2023 10:45 AM FRONT DESK ASSISTANT Height 180.3 cm (5' 11) 12/05/2023 10:45 AM FRONT DESK ASSISTANT Body Mass Index 25.26 12/05/2023 10:45 AM FRONT DESK ASSISTANT Plan of Treatment Health Maintenance Due Date Last Done Comments Breast Cancer Screening-Mammogram 1950 Colon Cancer Screening-Colonoscopy 1950 Depression Screening 1951 Fall Risk Assessment 1950 Hepatitis C Screening 1950 Osteoporosis Screening-Bone Density Scan 1951 DTaP/Tdap/Td Vaccine (1 - Tdap) 1962 Hepatitis B Screening 1969 Well Visit 65+ 2016 Covid-19 Vaccine (2024- 6 season) 2025 09/11/2021, 01/31/2021, 01/12/2021 Influenza Vaccine (#1) 2025 , 08/21/2019, 08/21/2019, Additional history exists Pneumococcal vaccine 65+ Completed 08/26/2018, 08/03 Zoster Vaccine Completed 06/20/2023, 03/02, 10/22/2015 Insurance [facility] Care Teams Transport Technician Relationship Specialty Start Date End Date Arden Mariscal MD [address] [facility] 162 [facility] [address] [place] [address] PCP - General Internal Medicine 04/25/22 Herve Ramirez MD [address] [facility]PT RAD[facility]ATION ONCOLOGY, [address] [address] Radiation Oncology 08/15/21 Honorio Oro MD [address] [address] Referring Physician Internal Medicine 08/15/21
--- OUTSIDE RECORDS SUMMARY | 2025-08-18 11:53 | XMS_ITS | Clinical Summary ---
Author Organization [facility] Address [address] [place] [address] Care Team Providers Care Quality Systems Manager Name Role Phone Joseph Love DO Primary Care Provider [phone] Allergies Active Allergy Reactions Criticality Noted Date Comments Fentanyl Headache,Nausea and Vomiting Low 09/23/2024 Hydromorphone Headache,Nausea and Vomiting Low 09/23/2024 Levofloxacin Anaphylaxis High 08/17/2014 Penicillins Hives High 03/29/2025 Product containing penicillin (product) Rosuvastatin Myalgias,Unknown Medium 07/06/2018 Leg pain Tramadol Headache,Nausea and Vomiting Low 09/23/2024 Medications cetirizine (ZYRTEC) 10 MG tablet Take 1 tablet (10 mg total) by mouth daily. Active albuterol sulfate HFA 108 (90 Base) MCG/ACT inhaler Inhale 2 puffs into the lungs every 4 (four) hours as needed. Active warfarin (COUMADIN) 5 MG tablet Take 1 tablet (5 mg total) by mouth daily. Active losartan (COZAAR) 25 MG tablet Take 1 tablet (25 mg total) by mouth daily. Active simvastatin (ZOCOR) 20 MG tablet Take 1 tablet (20 mg total) by mouth every evening. Active acetaminophen CR (TYLENOL) 650 MG Tab CR 8 hr tablet Take 1 tablet (650 mg total) by mouth every 8 (eight) hours as needed. Active calcium carbonate (TUMS) 500 MG chewable tablet Chew 1 tablet (500 mg total) by mouth 2 (two) times daily as needed. 09/17/2024 Active Senna (SENOKOT) 8.6 MG tablet Take 1 tablet (8.6 mg total) by mouth daily. Active VALERIAN ROOT OR Take by mouth nightly as needed. Active Active Problems Problem Noted Date Diagnosed Date Encounter for follow-up surveillance of lung can cer 07/28/2025 Gastroesophageal reflux disease 03/29/2025 History of radiation therapy 01/26/2025 Overview (08/09/2025): 1. cT1aN0 RUL NSCLC (adenocarcinoma) s/p segmental resection 10/2014 2. Synchronous primary RUL/ANN NSCLC a. cT1aN0 RUL NSCLC (adenocarcinoma) s/p SABR on CyberKnife to 50Gy/5fx completed 01/2021 b. cT1bN0 ANN NSCLC (adenocarcinoma) s/p SABR on CyberKnife to 50Gy/5fx completed 01/2021 3. cT1bN0 LLL NSCLC (adenocarcinoma) s/p SABR on CyberKnife to 45Gy/5fx completed 01/2025 Coronary artery calcification seen on CT scan Medication side effects 08/15/2021 Primary cancer of left upper lobe of lung ([facility]/H [facility]) 01/09/2021 Primary cancer of right uppe r lobe of lung ([facility]/HCC) 12/05/2020 Palpitations 07/31/2020 Statin myopathy 01/24/2020 Bilateral carotid artery stenosis 07/19/2019 Myalgia 01/19/2018 PAD (peripheral artery disease) 10/27/2017 Chronic anticoagulation 08/12/2017 Aortic valve stenosis 12/19/2016 Overview (08/09/2025): Aortic stenosis, mild Cancer of lung ([facility]/HCC) 12/19/2016 Overview (08/09/2025): Malignant neoplasm of lung, unspecified laterality, unspecified part of lung Paroxysmal atrial flutter ([facility]/HCC) 12/01 Overview (08/09/2025): Paroxysmal atrial flutter Paroxysmal atrial fibrillation ([facility]/HCC) 01/03/2016 PSVT (paroxysmal supraventricular tachycardia) ( [facility]) 09/27/2014 Chronic obstructive pulmonary disease ([facility] H [facility]/HCC) 09/05/2014 Overview (08/09/2025): Chronic obstructive pulmonary disease, unspecified COPD type Essential hypertension, benign 07/31/2014 Overview (08/09/2025): HTN (hypertension), benign Mixed hyperlipidemia 07/31/2014 Undiagnosed cardiac murmurs 07/31/2014 Resolved Problems Problem Noted Date Diagnosed Date Resolved Date Hospital discharge follow-up 09/23/2024 08/15/2025 Statin intolerance 07/06/2018 Encounters Date Type Department Care Team Description 08/09/2025 Orders Only [facility] [address] [place] [address] Zaynab Milner MA from Last 3 Months Immunizations Immunization Administration Dates Next Due Arexvy Respiratory Syncytial Virus (RSV, adjuvanted) 0.5 mL, PF 08/22/2023 Influenza (Generic) 08/22/2023,10/22/2015 Influenza Adult (Generic) 08/21/2019 Pneumococcal (Pneumovax 23) 08/26/2018 Pneumococcal (Prevnar 13) 08/30/2017 Shingrix 06/20/2023,03/24/2023 Social History Tobacco Use Types Packs/Day Years Used Date Smoking Tobacco: Never Assessed Comments Unknown Sex and Gender Information Value Date Recorded Sex Assigned at Not on file Legal Sex Female 5:51 PM CDT Gender Identity Not on file Sexual Orientation Not on file Plan of Treatment Upcoming Encounters Date Type Department Care Team (Late st Contact Info) Description 09/07/2025 9:45 AM CDT Office Visit [facility] [address] [place] [phone] Edenilson Sena MD [facility]. [address] [place], [place] [phone] Health Maintenance Due Date Last Done Comments ASCVD LDL 1950 Colorectal Cancer Screening Colonoscopy (10 Years) 1950 Hepatitis C 1969 DTaP, Tdap and Td Vaccines ( 1 - Tdap) 1970 Mammogram Screening 1991 Annual Medicare Wellness Visit 2016 Dexa Scan (General) 2016 COVID-19 Vaccine (2024-2 6 season) 2025 09/11/2021, 01/31/2021, 01/12/2021 Pneumococcal Vaccine: 50+ Years Completed 08/26/2018, 08/30/2017 Zoster Vaccines Completed 06/20/2023, 03/24/2023, 10/22/2015 RSV Immunization or 60+ Years Completed 08/22/2023 Meningococcal B Vaccine Aged Out No l onger eligible based on patient's age to complete this topic Meningococcal Vaccine Aged Out No donald robert eligible based on patient's age to complete this topic RSV Immunizations Under 20 Months Aged Out No longer eligible b ased on patient's age to complete this topic [place] [address] [place] Care Teams Quality Systems Manager Relationship Specialty Start Date End Date Joseph Love DO [address] [place] [address] PCP - General INTERNAL MEDICINE 08/01/25
--- OUTSIDE RECORDS SUMMARY | 2025-08-18 11:53 | XMS_ITS | Encounter Summary ---
Author Organization [facility] Address [address] [facility] [address] [place] [address] Care Team Providers Care Digital Account Executive Name Role Phone Tricia Edward MD Primary Care Provider Tricia Edward MD Primary Care Provider Jeremy Mar MD Primary Care Provider [phone] Herve Ramirez MD Unavailable [phone] Honorio Oro MD Unavailable Arden Mariscal MD Primary Care Provider [phone] Encounter Details Date Type Department Care Team (Late st Contact Info) Description 12/19/2016 Orders Only [facility] Provider, MD Ana [address] [place] [address] Social History Tobacco Use Types Packs/Day Years Used Date Smoking Tobacco: Former Cigarettes Q uit: 12/01/2006 Alcohol Use Standard Drinks/Week Comments Yes 0 (1 standard drink = 0.6 oz pur e alcohol) Comments Unknown Sex and Gender Information Value Date Recorded Sex Assigned at Not on file Legal Sex Female 6:04 AM SENIOR JAVA ARCHITECT Gender Identity Not on file Sexual Orientation [...] on filedocumented in this encounter Care Teams Digital Account Executive Relationship Specialty Start Date End Date Tricia Edward MD [address] [place] [address] PCP - General 02/28/17 08/14/21 Tricia Edward MD [address] [facility] [address] [place] [address] PCP - General 12/04/12 02/27/17 Jeremy Mar MD [address] [facility] [address] [place] [address] PCP - General Internal Medicine 08/15/21 04/24/22 Arden Mariscal MD [address] [facility] [address] [facility] [address] [place] [address] PCP - General Internal Medicine 04/25/22 Herve Ramirez MD [address] [facility]PT RADIATION ONCOLOGY, [address] [address] Radiation Oncology 08/15/21 Honorio Oro MD [address] [address] Referring Physician Internal Medicine 08/15/21 documented as of this encounter
[2025-08-18 12:28] LABS: INR 1.1; Prothrombin Time 13.8 Seconds (11.1-14.7)
== END 2025-08-18 11:42 | disposition home or self-care (01) ==
PROVIDERS: PCP Nurse Practitioner; Referring Provider Urology; Visit Provider Internal Medicine Cardiovascular Disease
DX: I48.0 Paroxysmal atrial fibrillation (principal)
CPT/HCPCS: 36415; 85610